=== PATIENT | male | born 1950 | race Caucasian/White ===

== ENCOUNTER → 2017-09-05 06:51 | Outpatient (CLI) | payer MEDICARE, OTHER, SELFPAY ==
[2017-09-05 08:34] LABS: Add Manual Diff / Slide Review NO; Basophils Percent Auto 0.7 % (0-2); Eosinophils Percent Auto 3.6 % (2-4); Hematocrit 43.5 % (41-53); Hemoglobin 14.9 g/dL (13.5-17.5); Lymphocytes Percent Auto 24.7 % (25-40); Mean Corpuscular HGB Conc 34.4 % (30-36); Mean Corpuscular Hemoglobin 32.9 PG (26-34); Mean Corpuscular Volume 95.6 fL (80-100); Monocytes Percent Auto 13.7 % (3-14); Neutrophils Absolute Auto 2300 /uL (3000-5900); Neutrophils Percent Auto 57.3 % (50-75); Platelet Count 78 X10^3/uL (150-400); Red Blood Cell Count 4.55 X10^6/uL (4.5-5.9); Red Cell Distribution Width 13.8 % (11.6-14.8); White Blood Cell Count 3.9 X10^3/uL (4.5-11.0)
[2017-09-05 08:38] LABS: INR 1.3 (0.9-1.3); Prothrombin Time 14.4 SECONDS (10.1-12.7)
[2017-09-05 08:53] LABS: Hemoglobin A1C% w Est Avg Glu 6.5 % (4.0-6.0)
[2017-09-05 09:16] LABS: Alanine Aminotransferase 23 IU/L (21-72); Albumin 3.9 g/dL (3.5-5.0); Albumin Globulin Ratio 1.1 (1.0-2.8); Alkaline Phosphatase 138 U/L (38-126); Aspartate Aminotransferase 27 IU/L (17-59); BUN Creatinine Ratio 11.4 (6-22); Bilirubin Total 0.8 mg/dL (0.2-1.3); Blood Urea Nitrogen 8 mg/dL (9-20); Calcium 9.2 mg/dL (8.4-10.2); Carbon Dioxide 28 mmol/L (22-32); Chloride 99 mmol/L (98-107); Estimated Glomerular Filt Rate > 60.0 mL/min (>60); Globulin 3.5 g/dL (1.7-4.1); Glucose 133 mg/dL (80-110); HEMOLYSIS < 15 (0-50); Potassium 4.6 mmol/L (3.4-5.1); Sodium 139 mmol/L (137-145); Total Protein 7.4 g/dL (6.3-8.2)
== END ==
PROVIDERS: PCP Internal Medicine; Visit Provider Internal Medicine
DX: I10 Essential (primary) hypertension (principal); K70.9 Alcoholic liver disease, unspecified; D69.6 Thrombocytopenia, unspecified; E11.9 Type 2 diabetes mellitus without complications
CPT/HCPCS: 36415; 80053; 83036; 85025; 85610

== ENCOUNTER → 2017-10-04 10:00 | Outpatient (CLI) | payer MEDICARE, OTHER, SELFPAY ==
[2017-10-06 15:22] LABS: Alpha Fetoprotein 6.5 ng/mL (< 6.1)
== END ==
PROVIDERS: Visit Provider Internal Medicine
DX: K74.60 Unspecified cirrhosis of liver (principal)
CPT/HCPCS: 36415; 82105

== ENCOUNTER → 2017-11-01 10:06 | Outpatient (CLI) | payer MEDICARE, OTHER, SELFPAY ==
--- NOTE | 2017-11-01 10:09 | DI.US.S_ITS ---
PROCEDURE: US ABDOMEN COMPLETE INDICATIONS: Cirrhosis of Liver TECHNIQUE: Real-time scanning was performed of the abdominal and retroperitoneal organs, with image documentation. COMPARISON: [facility], US, ABDOMEN COMPLETE, 03/28/2013, 8:53. [facility], US, ABDOMEN COMPLETE, 06/13/2013, 8:25. [facility], CT, ABDOMEN/PELVIS WITH CONTRAST, 08/09/2016, 12:47. [facility], CT, ABDOMEN/PELVIS WITH CONTRAST, 09/23/2015, 11:15. [facility], US, ABDOMEN COMPLETE, 12/03/2014, 12:12. FINDINGS: Liver: The liver demonstrates normal size. The liver demonstrates a coarse echotexture. There is a 1 x 1 x 1 cm hypoechoic solid nodule with vascularity seen involving the anterior right lobe of the liver. Gallbladder: Numerous gallstones are seen. The gallbladder wall is not thickened, measuring 3 mm or less. No specific pericholecystic fluid is seen. The sonographic Parr sign is negative. Biliary ducts: Intrahepatic bile ducts are non-dilated. Extrahepatic bile duct caliber measures 5 mm. Normal is 6-7 mm or less in diameter, or 10 mm or less post-cholecystectomy. Pancreas: Visualized portions of the pancreas are sonographically normal. Spleen: The spleen is mildly enlarged at 13.6 cm. Kidneys: Kidneys are normal in size and echotexture. Right kidney measures 12.1 cm long; left kidney measures 13 cm long. No hydronephrosis or nephrolithiasis. No solid masses. The renal cortex measures within normal limits for thickness. Aorta: Visualized aorta is normal in caliber at less than 3 cm. Iliacs: Proximal common iliac arteries are normal in caliber at less than 2.5 cm. IVC: Intrahepatic inferior vena cava is patent. Miscellaneous: No free abdominal fluid. IMPRESSION: Coarse liver echotexture is seen, which is consistent with the given history of cirrhosis. There is associated mild splenomegaly. There is a hypoechoic 1 cm nodule seen within right anterior liver. At clinical discretion, please consider a dedicated liver MRI (without and with contrast) for further evaluation (assuming that there is no contraindication). Gallstones are seen, without additional sonographic signs of cholecystitis. Dictated by: Hema Lamb M.D. on 11/01/2017 at 11:10 Approved by: Hema Lamb M.D. on 11/01/2017 at 11:13
== END ==
PROVIDERS: Family Provider Family Medicine; PCP Internal Medicine; Visit Provider Internal Medicine
DX: K74.60 Unspecified cirrhosis of liver (principal); R16.1 Splenomegaly, not elsewhere classified; K80.80 Other cholelithiasis without obstruction
CPT/HCPCS: 76700

== ENCOUNTER → 2017-11-29 09:28 | Outpatient (CLI) | payer MEDICARE, OTHER, SELFPAY ==
[2017-11-29 11:15] LABS: HEMOLYSIS < 15 (0-50); Iron 74 ug/dL (49-181)
[2017-11-29 11:16] LABS: Alanine Aminotransferase 20 IU/L (21-72); Albumin 4.1 g/dL (3.5-5.0); Albumin Globulin Ratio 1.1 (1.0-2.8); Alkaline Phosphatase 209 U/L (38-126); Aspartate Aminotransferase 31 IU/L (17-59); BUN Creatinine Ratio 14.3 (6-22); Bilirubin Total 0.7 mg/dL (0.2-1.3); Blood Urea Nitrogen 10 mg/dL (9-20); Calcium 9.4 mg/dL (8.4-10.2); Carbon Dioxide 27 mmol/L (22-32); Chloride 98 mmol/L (98-107); Estimated Glomerular Filt Rate > 60.0 mL/min (>60); Globulin 3.6 g/dL (1.7-4.1); Glucose 152 mg/dL (80-110); Potassium 5.1 mmol/L (3.4-5.1); Sodium 134 mmol/L (137-145); Total Protein 7.7 g/dL (6.3-8.2)
[2017-11-29 11:22] LABS: Hemoglobin A1C% w Est Avg Glu 6.8 % (4.0-6.0)
[2017-11-29 11:32] LABS: Percent Iron Saturation 25 % (20-50); Total Iron Binding Capacity 296 ug/dL (261-462); Transferrin 236 mg/dL (206-381)
[2017-11-29 11:45] LABS: HEMOLYSIS 66 (0-50)
[2017-11-29 11:48] LABS: Hepatitis B Surface Antigen NEGATIVE s/c (NEGATIVE)
[2017-11-29 12:10] LABS: Hep C Virus Ab w/Reflex Quant NEGATIVE s/c (NEGATIVE)
[2017-12-01 15:26] LABS: Hepatitis B Core Antibody Nonreactive (Nonreactive)
[2017-12-01 15:31] LABS: Hepatitis B Surf AB Imm QUANT < 5 mIU/mL (> 9)
== END ==
PROVIDERS: PCP Internal Medicine; Visit Provider Internal Medicine
DX: E11.9 Type 2 diabetes mellitus without complications (principal); K74.60 Unspecified cirrhosis of liver; K76.89 Other specified diseases of liver
CPT/HCPCS: 36415; 80053; 83036; 83540; 83550; 86317; 86704; 86803; 87340

== ENCOUNTER → 2017-12-05 10:59 | Outpatient (CLI) | payer MEDICARE, OTHER, SELFPAY ==
--- NOTE | 2017-12-05 11:00 | DI.MRI.S_ITS ---
PROCEDURE: MR ABDOMEN WO/W CON INDICATIONS: Further evaluation of liver lesion seen on ultrasound TECHNIQUE: Coronal HASTE, axial 2D FLASH in- and [id number]; axial breath-hold T2 FSE. Dynamic axial VIBE during the administration of contrast; post-contrast coronal VIBE or 2D FLASH with fat saturation from the hepatic dome to the iliac crests. Optional diffusion weighted imaging and ADC may be performed. COMPARISON: [facility], CT, ABDOMEN/PELVIS WITH CONTRAST, 09/23/2015, 11:15. [facility], CT, ABDOMEN/PELVIS WITH CONTRAST, 08/09/2016, 12:47. [facility], US, US ABDOMEN COMPLETE, 11/01/2017, 10:34. FINDINGS: Image quality: Diagnostic. Lung bases: No basal pleural effusions. Heart size is normal. There is a small hiatal hernia. Solid organs: There is a nodular hepatic contour compatible with cirrhosis. In the lateral right hepatic lobe, there is a region of mild capsular retraction with indistinct T1 hypointensity and T2 hyperintensity. This demonstrates slightly hypervascular enhancement with persistent hypervascularity on portal venous and delayed imaging. The findings are consistent with an area of confluent hepatic fibrosis. A small cyst is also demonstrated within segment 7 of the right hepatic lobe measuring approximately 0.5 cm. There is mild heterogeneous nodularity of the hepatic parenchyma compatible with cirrhosis and probable regenerative nodules. In addition, within segment 8 of the right hepatic lobe, there is a small ovoid focus of slight hypointensity on the delayed and poor venous phases measuring up to approximately 1 cm. This may represent a small subtle focus of washout corresponding to the finding on recent ultrasound. Elsewhere, no discrete hypervascular enhancing masses are identified but evaluation is slightly limited by the area of confluent hepatic fibrosis in the right hepatic lobe. Gallbladder appears within normal limits without gallstones. Biliary system is non dilated. Pancreas is normal in morphology. The spleen is mildly enlarged, measuring up to 14.5 cm. No adrenal nodules. The kidneys demonstrate no hydronephrosis. Nodes and vessels: No retroperitoneal or mesenteric adenopathy by size criteria. Aorta and inferior vena cava are normal in size. Bowel and peritoneum: Visualized bowel loops are normal in caliber. No free fluid. Bones and soft tissues: No ventral hernias. Bone marrow is normal in overall signal. IMPRESSION: 1. Nodular hepatic contour with heterogeneity of the hepatic parenchyma compatible with cirrhosis. 2. Geographic ill-defined region of confluent hepatic fibrosis demonstrated in the right hepatic lobe with associated capsular retraction. 3. Suspected small focus of washout in the right hepatic lobe which may correspond to the finding on recent ultrasound. No definite associated hypervascular lesion identified, but evaluation is limited by the adjacent area of confluent hepatic fibrosis. The findings are compatible with a LI-RADS 3 lesion and followup is recommended in 3-6 months. 4. Mild splenomegaly suggestive of portal hypertension. Dictated by: Case Tao M.D. on 12/05/2017 at 15:09 Approved by: Case Tao M.D. on 12/05/2017 at 15:26
== END ==
PROVIDERS: Family Provider Family Medicine; PCP Internal Medicine; Visit Provider Internal Medicine
DX: K76.89 Other specified diseases of liver (principal); K74.60 Unspecified cirrhosis of liver; R16.1 Splenomegaly, not elsewhere classified
CPT/HCPCS: 74183; A9579

== ENCOUNTER → 2018-01-23 09:49 | Outpatient (CLI) | payer MEDICARE, OTHER, SELFPAY ==
[2018-01-23 10:32] LABS: Add Manual Diff / Slide Review NO; Eosinophils Percent Auto 2.6 % (2-4); Hematocrit 45.8 % (41-53); Hemoglobin 15.9 g/dL (13.5-17.5); INR 1.3 (0.9-1.3); Lymphocytes Percent Auto 18.4 % (25-40); Mean Corpuscular HGB Conc 34.7 % (30-36); Mean Corpuscular Hemoglobin 32.6 PG (26-34); Monocytes Percent Auto 13.7 % (3-14); Neutrophils Absolute Auto 3600 /uL (3000-5900); Neutrophils Percent Auto 64.3 % (50-75); Platelet Count 88 X10^3/uL (150-400); Prothrombin Time 14.2 SECONDS (10.1-12.7); Red Blood Cell Count 4.87 X10^6/uL (4.5-5.9); Red Cell Distribution Width 13.6 % (11.6-14.8); White Blood Cell Count 5.6 X10^3/uL (4.5-11.0)
[2018-01-23 10:35] LABS: PTT Partial Thromboplastin Tim 32 SECONDS (26.4-36.2)
[2018-01-23 10:40] LABS: Alanine Aminotransferase 25 IU/L (21-72); Albumin 4.5 g/dL (3.5-5.0); Albumin Globulin Ratio 1.3 (1.0-2.8); Alkaline Phosphatase 226 U/L (38-126); Aspartate Aminotransferase 24 IU/L (17-59); BUN Creatinine Ratio 18.6 (6-22); Bilirubin Total 1.1 mg/dL (0.2-1.3); Blood Urea Nitrogen 13 mg/dL (9-20); Calcium 10.1 mg/dL (8.4-10.2); Carbon Dioxide 31 mmol/L (22-32); Chloride 97 mmol/L (98-107); Estimated Glomerular Filt Rate > 60.0 mL/min (>60); Globulin 3.5 g/dL (1.7-4.1); Glucose 228 mg/dL (80-110); HEMOLYSIS < 15 (0-50); Sodium 139 mmol/L (137-145)
== END ==
PROVIDERS: Visit Provider Specialist
DX: K74.60 Unspecified cirrhosis of liver (principal)
CPT/HCPCS: 36415; 80053; 85025; 85610; 85730

== ENCOUNTER → 2018-04-02 10:31 | Outpatient (CLI) | payer MEDICARE, OTHER, SELFPAY ==
[2018-04-02 11:28] LABS: Estimated Glomerular Filt Rate > 60.0 mL/min (>60)
== END ==
PROVIDERS: Family Provider Family Medicine; PCP Student in an Organized Health Care Education/Training Program; Visit Provider Family Medicine
DX: Z01.812 Encounter for preprocedural laboratory examination (principal)
CPT/HCPCS: 36415; 82565

== ENCOUNTER → 2018-04-04 09:41 | Outpatient (CLI) | payer MEDICARE, OTHER, SELFPAY ==
--- NOTE | 2018-04-04 09:42 | DI.MRI.S_ITS ---
PROCEDURE: MR ABDOMEN WO/W CON INDICATIONS: Liver nodule TECHNIQUE: Coronal HASTE, axial 2D FLASH in- and [id number]; axial breath-hold T2 FSE. Dynamic axial VIBE during the administration of contrast; post-contrast coronal VIBE or 2D FLASH with fat saturation from the hepatic dome to the iliac crests. Optional diffusion weighted imaging and ADC may be performed. COMPARISON: [facility], MR, MR ABDOMEN WO/W CON, 12/05/2017, 11:09. [facility], US, US ABDOMEN COMPLETE, 11/01/2017, 10:34. [facility], CT, ABDOMEN/PELVIS WITH CONTRAST, 08/09/2016, 12:47. FINDINGS: Image quality: This examination is limited by involuntary motion artifact. A portion of the superior liver is off of the [id number]-[id number] of a few of the images. Lung bases: No basal pleural effusions. Heart size is normal. Solid organs: Liver demonstrates normal size. There is a minimally nodular contour seen in the liver. Within the lateral aspect of the right liver anteriorly, there is capsular retraction seen, with an area of minimally hypervascular enhancement with continued mildly Increased enhancement on delayed imaging, which is consistent with stable confluent fibrosis. Within the superior aspect of segment 7 of the liver, there is a subcentimeter nonenhancing simple cyst, as on series 24 image 2 and on series 4 image 21 and on series 5 image 7. On the prior report, there is mention of a segment 8 lesion. On the current study, there is an 8mm focus of poor enhancement seen, as on series 18 image 12. Gallbladder demonstrates no significant MRI abnormality. Biliary system is non dilated. Pancreas is normal in morphology. Spleen is mildly enlarged, measuring 13.4 cm in greatest craniocaudal dimension. No focal splenic lesions can be seen. No adrenal nodules. Both kidneys demonstrate normal size and enhancement, without hydronephrosis. Subcentimeter right renal cysts are incidentally noted. Nodes and vessels: No retroperitoneal or mesenteric adenopathy by size criteria. Aorta and inferior vena cava are normal in size. Bowel and peritoneum: Unenhanced bowel loops are normal in caliber. No free fluid. Bones and soft tissues: No ventral hernias. Bone marrow is normal in overall signal. Age-appropriate bony degenerative changes are seen. There is a fat-containing ventral hernia seen to the right of the midline, as on series 5 image 27 and on series 18 image 58. IMPRESSION: No suspicious liver lesions are seen. There is an area of confluent fibrosis involving the right lobe of the liver, as before. There is an area of poor enhancement seen along the region of confluent fibrosis, which is considered to be a LI-RADS 3 lesion. Please consider a followup liver protocol MRI in one year for further evaluation. Mildly cirrhotic morphology of the liver. There is mild splenomegaly. Incidental note is made of: Fat-containing ventral hernia Liver and renal cysts. Dictated by: Hema Lamb M.D. on 04/04/2018 at 12:50 Approved by: Hema Lamb M.D. on 04/04/2018 at 13:05
== END ==
PROVIDERS: PCP Student in an Organized Health Care Education/Training Program; Visit Provider Internal Medicine
DX: K76.9 Liver disease, unspecified (principal); K74.0 Hepatic fibrosis; K74.60 Unspecified cirrhosis of liver; R16.1 Splenomegaly, not elsewhere classified
CPT/HCPCS: 74183; A9579

== ENCOUNTER → 2018-05-06 07:47 | Outpatient (CLI) | payer MEDICARE, OTHER, SELFPAY ==
[2018-05-06 08:54] LABS: Hematocrit 46.2 % (41-53); Mean Corpuscular HGB Conc 34.7 % (30-36); Mean Corpuscular Hemoglobin 31.7 PG (26-34); Mean Corpuscular Volume 91.5 fL (80-100); Platelet Count 93 X10^3/uL (150-400); Red Blood Cell Count 5.05 X10^6/uL (4.5-5.9); Red Cell Distribution Width 13.4 % (11.6-14.8); White Blood Cell Count 4.5 X10^3/uL (4.5-11.0)
[2018-05-06 09:00] LABS: Hemoglobin A1C% w Est Avg Glu 10.3 % (4.0-6.0)
[2018-05-06 09:03] LABS: INR 1.2 (0.9-1.3); Prothrombin Time 14.2 SECONDS (10.1-12.7)
[2018-05-06 09:15] LABS: Alanine Aminotransferase 29 IU/L (21-72); Albumin 4.3 g/dL (3.5-5.0); Albumin Globulin Ratio 1.3 (1.0-2.8); Alkaline Phosphatase 156 U/L (38-126); Aspartate Aminotransferase 26 IU/L (17-59); Bilirubin Total 1.4 mg/dL (0.2-1.3); Blood Urea Nitrogen 8 mg/dL (9-20); Calcium 9.5 mg/dL (8.4-10.2); Carbon Dioxide 26 mmol/L (22-32); Chloride 97 mmol/L (98-107); Cholesterol 200 mg/dL (140-199); Estimated Glomerular Filt Rate > 60.0 mL/min (>60); Globulin 3.4 g/dL (1.7-4.1); Glucose 244 mg/dL (80-110); HDL Cholesterol 42 mg/dL (40-60); HEMOLYSIS < 15 (0-50); LDL Cholesterol Calculated 117 mg/dL (<100); Potassium 4.6 mmol/L (3.4-5.1); Sodium 134 mmol/L (137-145); Total Protein 7.7 g/dL (6.3-8.2); Triglycerides 204 mg/dL (35-150)
[2018-05-06 09:27] LABS: Vitamin D 25 Hydroxy (D3) 28.2 ng/mL (30.0-100.0)
[2018-05-06 09:40] LABS: Prostate Specific Antigen Scrn 5.23 ng/mL (0.1-4.0)
[2018-05-06 10:28] LABS: Microalbumin Urine Random 10.1 mg/dL (0-1.6)
[2018-05-06 11:09] LABS: Creatinine Urine Random 368.7 mg/dL; Microalbumi Creatinin Ratio Ur 27.3 ug/mg CR (<30)
[2018-05-07 14:30] LABS: Alpha Fetoprotein 5.5 ng/mL (< 6.1)
== END ==
PROVIDERS: PCP Student in an Organized Health Care Education/Training Program; Visit Provider Student in an Organized Health Care Education/Training Program
DX: E55.9 Vitamin D deficiency, unspecified (principal); E11.9 Type 2 diabetes mellitus without complications; I10 Essential (primary) hypertension; K74.60 Unspecified cirrhosis of liver; Z13.220 Encounter for screening for lipoid disorders; Z12.5 Encounter for screening for malignant neoplasm of prostate
CPT/HCPCS: 36415; 80053; 80061; 82043; 82105; 82306; 82570; 83036; 85027; 85610; G0103

== ENCOUNTER → 2018-06-18 13:09 | Outpatient (CLI) | payer MEDICARE, OTHER, SELFPAY ==
[2018-06-18 14:13] LABS: Platelet Count 77 X10^3/uL (150-400)
[2018-06-18 14:36] LABS: Alanine Aminotransferase 29 IU/L (21-72); Albumin 4.3 g/dL (3.5-5.0); Albumin Globulin Ratio 1.4 (1.0-2.8); Alkaline Phosphatase 138 U/L (38-126); Aspartate Aminotransferase 34 IU/L (17-59); Bilirubin Direct 0.2 mg/dL (0.0-0.4); Bilirubin Total 1.1 mg/dL (0.2-1.3); Bilirubin Unconjugated 0.8 mg/dL (0.0-1.1); Gamma Glutamyl Transpeptidase 44 U/L (15-73); Globulin 3.1 g/dL (1.7-4.1); HEMOLYSIS < 15 (0-50); Total Protein 7.4 g/dL (6.3-8.2)
[2018-06-18 15:07] LABS: Prostate Specific Antigen 4.59 ng/mL (0.10-4.00)
== END ==
PROVIDERS: PCP Student in an Organized Health Care Education/Training Program; Visit Provider Student in an Organized Health Care Education/Training Program
DX: K74.60 Unspecified cirrhosis of liver (principal); K76.89 Other specified diseases of liver; R97.20 Elevated prostate specific antigen [PSA]
CPT/HCPCS: 36415; 80076; 82248; 82977; 84153; 85049

== ENCOUNTER → 2018-10-07 11:39 | Outpatient (CLI) | payer MEDICARE, OTHER, SELFPAY ==
[2018-10-07 13:39] LABS: Prostate Specific Antigen 5.88 ng/mL (0.10-4.00)
== END ==
PROVIDERS: PCP Student in an Organized Health Care Education/Training Program; Visit Provider Specialist
DX: N40.1 Benign prostatic hyperplasia with lower urinary tract symptoms (principal)
CPT/HCPCS: 36415; 84153

== ENCOUNTER → 2018-11-23 09:10 | Outpatient (CLI) | payer MEDICARE, OTHER, SELFPAY ==
[2018-11-23 10:54] LABS: Alanine Aminotransferase 12 IU/L (21-72); Albumin Globulin Ratio 1.2 (1.0-2.8); Alkaline Phosphatase 181 U/L (38-126); Aspartate Aminotransferase 23 IU/L (17-59); Bilirubin Total 1.2 mg/dL (0.2-1.3); Cholesterol 142 mg/dL (140-199); Globulin 3.3 g/dL (1.7-4.1); HDL Cholesterol 48 mg/dL (40-60); HEMOLYSIS < 15 (0-50); LDL Cholesterol Calculated 69 mg/dL (<100); Total Protein 7.3 g/dL (6.3-8.2); Triglycerides 125 mg/dL (35-150)
== END ==
PROVIDERS: PCP Student in an Organized Health Care Education/Training Program; Visit Provider Student in an Organized Health Care Education/Training Program
DX: E78.5 Hyperlipidemia, unspecified (principal); Z79.899 Other long term (current) drug therapy
CPT/HCPCS: 36415; 80061; 80076

== ENCOUNTER → 2019-04-08 09:35 | Outpatient (CLI) | payer MEDICARE, OTHER, SELFPAY ==
[2019-04-08 10:14] LABS: Hematocrit 44.9 % (41-53); Hemoglobin 15.5 g/dL (13.5-17.5); Mean Corpuscular HGB Conc 34.4 % (30-36); Mean Corpuscular Hemoglobin 31.7 PG (26-34); Mean Corpuscular Volume 91.9 fL (80-100); Platelet Count 93 X10^3/uL (150-400); Red Blood Cell Count 4.88 X10^6/uL (4.5-5.9); Red Cell Distribution Width 13.4 % (11.6-14.8); White Blood Cell Count 4.9 X10^3/uL (4.5-11.0)
[2019-04-08 10:21] LABS: Hemoglobin A1C% w Est Avg Glu 10.7 % (4.0-6.0)
[2019-04-08 10:44] LABS: Alanine Aminotransferase 17 IU/L (<50); Albumin 4.5 g/dL (3.5-5.0); Albumin Globulin Ratio 1.4 (1.0-2.8); Alkaline Phosphatase 139 U/L (38-126); Aspartate Aminotransferase 24 IU/L (17-59); BUN Creatinine Ratio 12.5 (6-22); Bilirubin Total 1.5 mg/dL (0.2-1.3); Blood Urea Nitrogen 10 mg/dL (9-20); Calcium 9.9 mg/dL (8.4-10.2); Carbon Dioxide 31 mmol/L (22-32); Chloride 98 mmol/L (98-107); Estimated Glomerular Filt Rate > 60.0 mL/min (>60); Globulin 3.3 g/dL (1.7-4.1); Glucose 221 mg/dL (80-110); HEMOLYSIS < 15 (0-50); Sodium 137 mmol/L (137-145); Total Protein 7.8 g/dL (6.3-8.2)
[2019-04-08 10:51] LABS: Potassium 5.4 mmol/L (3.4-5.1)
[2019-04-08 11:03] LABS: Creatinine Urine Random 16.7 mg/dL
[2019-04-08 11:12] LABS: Microalbumi Creatinin Ratio Ur 35.9 ug/mg CR (<30); Microalbumin Urine Random < 0.6 mg/dL (0-1.6)
[2019-04-08 11:14] LABS: Prostate Specific Antigen 5.05 ng/mL (0.10-4.00)
== END ==
PROVIDERS: PCP Student in an Organized Health Care Education/Training Program; Visit Provider Student in an Organized Health Care Education/Training Program
DX: E11.9 Type 2 diabetes mellitus without complications (principal); F10.20 Alcohol dependence, uncomplicated; I10 Essential (primary) hypertension; K74.60 Unspecified cirrhosis of liver; D69.6 Thrombocytopenia, unspecified; R97.20 Elevated prostate specific antigen [PSA]
CPT/HCPCS: 36415; 80053; 82043; 82570; 83036; 84153; 85027

== ENCOUNTER → 2019-08-05 10:22 | Outpatient (CLI) | payer MEDICARE, OTHER, SELFPAY ==
[2019-08-05 12:04] LABS: Hemoglobin A1C% w Est Avg Glu 6.9 % (4.0-6.0)
[2019-08-05 12:11] LABS: Alanine Aminotransferase 18 IU/L (<50); Albumin 4.4 g/dL (3.5-5.0); Albumin Globulin Ratio 1.2 (1.0-2.8); Alkaline Phosphatase 118 U/L (38-126); Aspartate Aminotransferase 30 IU/L (17-59); Bilirubin Total 0.6 mg/dL (0.2-1.3); Blood Urea Nitrogen 10 mg/dL (9-20); Calcium 9.9 mg/dL (8.4-10.2); Carbon Dioxide 27 mmol/L (22-32); Chloride 100 mmol/L (98-107); Estimated Glomerular Filt Rate > 60.0 mL/min (>60); Globulin 3.6 g/dL (1.7-4.1); Glucose 116 mg/dL (80-110); HEMOLYSIS < 15 (0-50); Sodium 136 mmol/L (137-145)
[2019-08-05 12:16] LABS: Potassium 5.4 mmol/L (3.4-5.1)
[2019-08-05 12:46] LABS: Prostate Specific Antigen 4.76 ng/mL (0.10-4.00)
== END ==
PROVIDERS: PCP Student in an Organized Health Care Education/Training Program; Referring Provider Specialist; Visit Provider Specialist
DX: N40.1 Benign prostatic hyperplasia with lower urinary tract symptoms (principal); E11.9 Type 2 diabetes mellitus without complications; K74.60 Unspecified cirrhosis of liver; Z79.899 Other long term (current) drug therapy
CPT/HCPCS: 36415; 80053; 83036; 84153

== ENCOUNTER → 2020-02-25 12:18 | Outpatient (CLI) | payer MEDICARE, OTHER, SELFPAY ==
[2020-02-25 12:46] LABS: Add Manual Diff / Slide Review NO; Basophils Absolute Auto 100 /uL (0-100); Basophils Percent Auto 0.8 % (0-2); Eosinophils Absolute Auto 200 /uL (0-450); Eosinophils Percent Auto 2.6 % (2-4); Hematocrit 44.5 % (41-53); Hemoglobin 14.9 g/dL (13.5-17.5); Lymphocytes Absolute Auto 1300 /uL (1100-4500); Lymphocytes Percent Auto 18.6 % (25-40); Mean Corpuscular HGB Conc 33.6 % (30-36); Mean Corpuscular Hemoglobin 31.1 PG (26-34); Mean Corpuscular Volume 92.6 fL (80-100); Monocytes Absolute Auto 800 /uL (0-900); Monocytes Percent Auto 10.8 % (3-14); Neutrophils Absolute Auto 4700 /uL (1500-7000); Neutrophils Percent Auto 67.2 % (50-75); Platelet Count 103 X10^3/uL (150-400); Red Cell Distribution Width 13.7 % (11.6-14.8)
[2020-02-25 13:02] LABS: Hemoglobin A1C% w Est Avg Glu 7.2 % (4.0-6.0)
[2020-02-25 13:48] LABS: Alanine Aminotransferase 18 IU/L (<50); Albumin 4.4 g/dL (3.5-5.0); Albumin Globulin Ratio 1.3 (1.0-2.8); Alkaline Phosphatase 105 U/L (38-126); Aspartate Aminotransferase 24 IU/L (17-59); BUN Creatinine Ratio 13.8 (6-22); Bilirubin Total 1.2 mg/dL (0.2-1.3); Blood Urea Nitrogen 11 mg/dL (9-20); Calcium 9.8 mg/dL (8.4-10.2); Carbon Dioxide 30 mmol/L (22-32); Chloride 99 mmol/L (98-107); Estimated Glomerular Filt Rate > 60.0 mL/min (>60); Globulin 3.4 g/dL (1.7-4.1); Glucose 121 mg/dL (80-110); HEMOLYSIS < 15 (0-50); Potassium 5.1 mmol/L (3.4-5.1); Sodium 133 mmol/L (137-145); Total Protein 7.8 g/dL (6.3-8.2)
[2020-02-25 16:26] LABS: Creatinine Urine Random 48.7 mg/dL
[2020-02-25 16:30] LABS: Microalbumi Creatinin Ratio Ur 22.5 ug/mg CR (<30); Microalbumin Urine Random 1.1 mg/dL (0-1.6)
[2020-02-25 16:42] LABS: Vitamin D 25 Hydroxy (D3) 48.4 ng/mL (30.0-100.0)
== END ==
PROVIDERS: PCP Student in an Organized Health Care Education/Training Program; Referring Provider Specialist; Visit Provider Specialist
DX: E11.9 Type 2 diabetes mellitus without complications (principal); E55.9 Vitamin D deficiency, unspecified; F10.20 Alcohol dependence, uncomplicated; E78.5 Hyperlipidemia, unspecified; K74.60 Unspecified cirrhosis of liver; K76.6 Portal hypertension; D50.9 Iron deficiency anemia, unspecified; K76.89 Other specified diseases of liver
CPT/HCPCS: 36415; 80053; 82043; 82306; 82570; 83036; 85025

== ENCOUNTER → 2020-03-05 13:01 | Outpatient (CLI) | payer MEDICARE, OTHER, SELFPAY ==
--- NOTE | 2020-03-05 14:08 | DI.MRI.S_ITS ---
PROCEDURE: MR ABDOMEN WO/W CON INDICATIONS: F/u abnormal liver imaging 2018 TECHNIQUE: Coronal HASTE, axial 2D FLASH in- and [id number]; axial breath-hold T2 FSE. Dynamic axial VIBE during the administration of contrast; post-contrast coronal VIBE or 2D FLASH with fat saturation from the hepatic dome to the iliac crests. Optional diffusion weighted imaging and ADC may be performed. COMPARISON: [facility], CT, ABDOMEN/PELVIS WITH CONTRAST, 08/09/2016, 12:47. [facility], MR, MR ABDOMEN WO/W CON, 12/05/2017, 11:09. [facility], MR, MR ABDOMEN WO/W CON, 04/04/2018, 9:46. FINDINGS: Image quality: Excellent. Lung bases: No basal pleural effusions. Heart size is normal. Gynecomastia. Solid organs: Nodular and somewhat shrunken appearance of the liver. Hypertrophy of the caudate lobe. Findings in keeping with cirrhosis. There is no significant steatosis appreciated. Mild fibrosis in the lateral right lobe of the liver with geographic delayed heterogeneous enhancement. Overall similar to the prior exams. There is subcapsular retraction at this site. No hyperenhancing lesion or washout. No restricted diffusion. No suspicious T2 hyperintense lesions. A few small benign cysts. Gallbladder is not distended. No gallstones seen. Biliary system is non dilated. Pancreas is normal in morphology. Spleen is at the upper limits of normal in size measuring at 12.9 cm. No adrenal nodules. Both kidneys demonstrate normal size and enhancement, without hydronephrosis. Nodes and vessels: No retroperitoneal or mesenteric adenopathy by size criteria. Small pericardiac lymph node is unchanged compared to 2017. Aorta and inferior vena cava are normal in size. Small paraesophageal low and upper abdominal varices. Conventional and patent hepatic arterial anatomy. The portal vein is patent. Bowel and peritoneum: Unenhanced bowel loops are normal in caliber. No ascites. Bones and soft tissues: Similar containing ventral abdominal wall hernias. Bone marrow is normal in overall signal. IMPRESSION: 1. Cirrhotic liver morphology. No LR 4 or 5 lesions to suggest HCC. 2. Upper abdominal varices and prominent spleen. Findings suggesting portal hypertension. No ascites. 3. Area of fibrosis and subcapsular retraction in the right hepatic lobe is similar in appearance. Dictated by: Gurwinder Alvarez M.D. on 03/05/2020 at 14:33 Approved by: Gurwinder Alvarez M.D. on 03/05/2020 at 14:51
== END ==
PROVIDERS: PCP Student in an Organized Health Care Education/Training Program; Referring Provider Student in an Organized Health Care Education/Training Program; Visit Provider Student in an Organized Health Care Education/Training Program
DX: K76.89 Other specified diseases of liver (principal); K74.60 Unspecified cirrhosis of liver; K76.6 Portal hypertension
CPT/HCPCS: 74183; A9579

== ENCOUNTER → 2020-03-29 11:09 | Outpatient (CLI) | payer MEDICARE, OTHER, SELFPAY ==
[2020-03-29 13:01] LABS: COVID19 -Nasal RAPID Negative (Negative)
== END ==
PROVIDERS: PCP Student in an Organized Health Care Education/Training Program; Visit Provider Surgery
DX: Z20.822 Contact with and (suspected) exposure to COVID-19 (principal)
CPT/HCPCS: 87635; C9803

== ENCOUNTER → 2020-04-15 10:37 | Outpatient (CLI) | payer MEDICARE, OTHER, SELFPAY ==
[2020-04-15 14:12] LABS: Prostate Specific Antigen 5.75 ng/mL (0.10-4.00)
== END ==
PROVIDERS: PCP Student in an Organized Health Care Education/Training Program; Referring Provider Specialist; Visit Provider Specialist
DX: N40.0 Benign prostatic hyperplasia without lower urinary tract symptoms (principal)
CPT/HCPCS: 36415; 84153

== ENCOUNTER → 2020-05-14 10:05 | Outpatient (CLI) | payer MEDICARE, OTHER, SELFPAY ==
[2020-05-14 11:36] LABS: COVID19 -Nasal RAPID Negative (Negative)
== END ==
PROVIDERS: PCP Student in an Organized Health Care Education/Training Program; Visit Provider Surgery
DX: Z20.822 Contact with and (suspected) exposure to COVID-19 (principal)
CPT/HCPCS: 87635; C9803

== ENCOUNTER 2020-05-17 07:59 | Day surgery (SDC) | payer MEDICARE, OTHER, SELFPAY ==
[2020-05-17] MEDS: LACTATED RINGERS 1,000 ML 42 ML IV (08:24)
[2020-05-17 08:25] VITALS: BP 135/91; PULSE 87; RESP 13; TEMP 36.8; O2SAT 96; BMI 25.8
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
[2020-05-17 08:43] VITALS: BMI 25.8
--- NOTE | 2020-05-17 09:17 | PM.OP.ENDO ---
Operative Date/Time/Diagnoses Date of procedure: 05/17/20 Time of procedure: 09:17 Pre-op diagnosis: Personal history of colon polyps, cirrhosis Post-op diagnosis: same (Normal colon on today's exam) Procedure & Clinicians Study performed: Colonoscopy Same procedure as scheduled: Yes Indications: Personal history of colon polyps, cirrhosis. Due the patient's medical complexity, and anticipated difficulty with sedation due to his alcohol and cirrhosis history have consulted the anesthesiologist to provide sedation during this procedure. Surgeon: Emily Mendez Procedure Notes SCOAP/Timeout: Performed Procedure in detail: The patient was brought to the room and placed in left lateral decubitus position with all bony prominences padded. A time-out was performed and then the patient was sedated by the anesthesiologist. Once adequately sedated, the procedure was begun. A rectal exam was performed revealing no abnormalities. The colonoscope was then introduced to the rectum and advanced to the cecum in the usual fashion. His sigmoid anastomosis from his prior sigmoid colectomy was noted. It was widely patent, without any anastomotic narrowing. The cecum was identified by the appendiceal orifice, the mucosal tri-fold, and the ileocecal valve. The scope was then retracted while rotating side to side and examining each mucosal fold. No polyps were found. The patient had extensive diverticulosis just above and below his anastomosis in the sigmoid colon, and moderate diverticulosis throughout his ascending, transverse, and descending colon. At the conclusion of the procedure retroflexion was performed and small grade 1-2 internal hemorrhoids without stigmata of bleeding were seen. The scope was then withdrawn from the rectum the procedure was concluded. The patient tolerated the procedure well and was transferred to the PACU in stable condition. Scope withdrawal time: 6 Findings: diverticulosis Specimen(s): none sent Complications: none Impression: Moderate diverticulosis, no polyps Post-procedure Recommendations: Colonscopy in 10 years Plan for aftercare: High-fiber diet/fiber supplement Follow up: as needed Disposition: PACU
[2020-05-17 09:22] VITALS: BP 108/73; PULSE 89; RESP 17; TEMP 36.4; O2SAT 98
[2020-05-17 09:37] VITALS: BP 128/93; PULSE 86; RESP 17; TEMP 36.5; O2SAT 98
== END 2020-05-17 09:52 | disposition home or self-care (01) ==
PROVIDERS: PCP Student in an Organized Health Care Education/Training Program; Referring Provider Surgery; Visit Provider Surgery
PROC: 0DJD8ZZ Inspection of Lower Intestinal Tract, Via Natural or Artificial Opening Endoscopic (ICD-10-PCS; CPT 45378; principal; 2020-05-17 09:15)
DX: Z12.11 Encounter for screening for malignant neoplasm of colon (principal); Z86.010 Personal history of colon polyps; E11.69 Type 2 diabetes mellitus with other specified complication; E78.5 Hyperlipidemia, unspecified; K70.30 Alcoholic cirrhosis of liver without ascites; F10.11 Alcohol abuse, in remission; E11.9 Type 2 diabetes mellitus without complications; I50.9 Heart failure, unspecified; Z79.84 Long term (current) use of oral hypoglycemic drugs; K57.30 Diverticulosis of large intestine without perforation or abscess without bleeding; K64.0 First degree hemorrhoids
CPT/HCPCS: G0105; J2704

== ENCOUNTER → 2020-10-16 08:18 | Outpatient (CLI) | payer MEDICARE, OTHER, SELFPAY ==
[2020-10-16 10:04] LABS: Hemoglobin A1C% w Est Avg Glu 6.7 % (4.0-6.0)
[2020-10-16 10:14] LABS: BUN Creatinine Ratio 16.9 (6-22); Blood Urea Nitrogen 12 mg/dL (9-20); Calcium 9.6 mg/dL (8.4-10.2); Carbon Dioxide 26 mmol/L (22-32); Chloride 105 mmol/L (98-107); Estimated Glomerular Filt Rate > 60.0 mL/min (>60); Glucose 134 mg/dL (80-110); HEMOLYSIS < 15 (0-50); Potassium 4.5 mmol/L (3.4-5.1); Sodium 136 mmol/L (137-145)
[2020-10-16 10:35] LABS: Prostate Specific Antigen 6.61 ng/mL (0.10-4.00)
== END ==
PROVIDERS: Specialist; PCP Student in an Organized Health Care Education/Training Program; Referring Provider Student in an Organized Health Care Education/Training Program; Visit Provider Student in an Organized Health Care Education/Training Program
DX: E11.9 Type 2 diabetes mellitus without complications (principal); N40.0 Benign prostatic hyperplasia without lower urinary tract symptoms; F10.21 Alcohol dependence, in remission
CPT/HCPCS: 36415; 80048; 83036; 84153

== ENCOUNTER → 2021-01-19 09:40 | Outpatient (CLI) | payer MEDICARE, OTHER, SELFPAY ==
[2021-01-19 11:39] LABS: Prostate Specific Antigen 6.64 ng/mL (0.10-4.00)
== END ==
PROVIDERS: PCP Student in an Organized Health Care Education/Training Program; Referring Provider Specialist; Visit Provider Specialist
DX: N13.8 Other obstructive and reflux uropathy (principal); R97.20 Elevated prostate specific antigen [PSA]; N40.1 Benign prostatic hyperplasia with lower urinary tract symptoms
CPT/HCPCS: 36415; 84153

== ENCOUNTER → 2021-02-23 08:31 | Outpatient (CLI) | payer MEDICARE, OTHER, SELFPAY ==
[2021-02-23 19:58] LABS: Microalbumin Urine Random 1.4 mg/dL (0-1.6)
[2021-02-23 20:01] LABS: Creatinine Urine Random 47.1 mg/dL; Microalbumi Creatinin Ratio Ur 29.7 ug/mg CR (<30)
== END ==
PROVIDERS: PCP Student in an Organized Health Care Education/Training Program; Referring Provider Student in an Organized Health Care Education/Training Program; Visit Provider Student in an Organized Health Care Education/Training Program
DX: E11.69 Type 2 diabetes mellitus with other specified complication (principal); E78.5 Hyperlipidemia, unspecified; R97.20 Elevated prostate specific antigen [PSA]; N40.1 Benign prostatic hyperplasia with lower urinary tract symptoms; N13.8 Other obstructive and reflux uropathy
CPT/HCPCS: 36415; 80061; 82043; 82570; 83036; 99214

== ENCOUNTER → 2021-06-17 14:26 | Outpatient (CLI) | payer MEDICARE, OTHER, SELFPAY ==
[2021-06-17 16:29] LABS: Prostate Specific Antigen 7.77 ng/mL (0.10-4.00)
== END ==
PROVIDERS: PCP Student in an Organized Health Care Education/Training Program; Referring Provider Specialist; Visit Provider Specialist
DX: R97.20 Elevated prostate specific antigen [PSA] (principal)
CPT/HCPCS: 36415; 84153

== ENCOUNTER → 2021-08-31 08:58 | Outpatient (CLI) | payer MEDICARE, OTHER, SELFPAY ==
[2021-08-31 11:31] LABS: Hemoglobin A1C% w Est Avg Glu 6.5 % (4.0-6.0)
== END ==
PROVIDERS: PCP Student in an Organized Health Care Education/Training Program; Referring Provider Student in an Organized Health Care Education/Training Program; Visit Provider Student in an Organized Health Care Education/Training Program
DX: E11.9 Type 2 diabetes mellitus without complications (principal)
CPT/HCPCS: 36415; 83036

== ENCOUNTER → 2022-03-30 09:29 | Outpatient (CLI) | payer MEDICARE, OTHER, SELFPAY ==
[2022-03-30 10:15] LABS: Hemoglobin A1C% w Est Avg Glu 6.6 % (4.0-6.0)
[2022-03-30 10:25] LABS: Alanine Aminotransferase 21 IU/L (<50); Albumin Globulin Ratio 1.4 (1.0-2.8); Alkaline Phosphatase 92 U/L (38-126); Aspartate Aminotransferase 24 IU/L (17-59); BUN Creatinine Ratio 17.1 (6-22); Blood Urea Nitrogen 12 mg/dL (9-20); Calcium 9.2 mg/dL (8.4-10.2); Carbon Dioxide 33 mmol/L (22-32); Chloride 96 mmol/L (98-107); Cholesterol 135 mg/dL (140-199); Estimated Glomerular Filt Rate > 60 mL/min (>60); Globulin 2.9 g/dL (1.7-4.1); Glucose 131 mg/dL (80-110); HDL Cholesterol 49 mg/dL (40-60); HEMOLYSIS < 15 (0-50); LDL Cholesterol Calculated 68 mg/dL (<100); Potassium 4.9 mmol/L (3.4-5.1); Sodium 135 mmol/L (137-145); Total Protein 6.9 g/dL (6.3-8.2); Triglycerides 92 mg/dL (35-150)
[2022-03-30 10:54] LABS: Prostate Specific Antigen 5.84 ng/mL (0.10-4.00)
[2022-03-30 11:40] LABS: Creatinine Urine Random 61.6 mg/dL
[2022-03-30 11:44] LABS: Microalbumi Creatinin Ratio Ur 21.1 ug/mg CR (<30); Microalbumin Urine Random 1.3 mg/dL (0-1.6)
[2022-03-30 11:50] LABS: Vitamin B12 475 pg/mL (239-931)
== END ==
PROVIDERS: PCP Student in an Organized Health Care Education/Training Program; Referring Provider Student in an Organized Health Care Education/Training Program; Visit Provider Student in an Organized Health Care Education/Training Program
DX: E11.9 Type 2 diabetes mellitus without complications (principal); R97.20 Elevated prostate specific antigen [PSA]; K70.30 Alcoholic cirrhosis of liver without ascites; K76.6 Portal hypertension; T50.905A Adverse effect of unspecified drugs, medicaments and biological substances, initial encounter; E11.69 Type 2 diabetes mellitus with other specified complication; E78.5 Hyperlipidemia, unspecified
CPT/HCPCS: 36415; 80053; 80061; 82043; 82570; 82607; 83036; 84153

== ENCOUNTER → 2022-07-11 07:14 | Outpatient (CLI) | payer MEDICARE, OTHER, SELFPAY ==
[2022-07-11 09:35] LABS: Prostate Specific Antigen 5.47 ng/mL (0.10-4.00)
== END ==
PROVIDERS: PCP Student in an Organized Health Care Education/Training Program; Referring Provider Specialist; Visit Provider Specialist
DX: R97.20 Elevated prostate specific antigen [PSA] (principal)
CPT/HCPCS: 36415; 84153

== ENCOUNTER → 2022-09-28 14:04 | Outpatient (CLI) | payer MEDICARE, OTHER, SELFPAY ==
[2022-09-29 04:30] LABS: Labcorp Hemoglobin (Hb) A1c 6.2 % (4.8-5.6)
== END ==
PROVIDERS: PCP Student in an Organized Health Care Education/Training Program; Referring Provider Student in an Organized Health Care Education/Training Program; Visit Provider Student in an Organized Health Care Education/Training Program
DX: E11.9 Type 2 diabetes mellitus without complications (principal)
CPT/HCPCS: 36415; 83036

== ENCOUNTER → 2023-08-15 08:28 | Outpatient (CLI) | payer OTHER, SELFPAY ==
--- NOTE | 2023-08-15 08:30 | DI.MRI.S_ITS ---
PROCEDURE: MR PELVIC PROSTATE PROTOCOL INDICATIONS: Benign prostatic hyperplasia with urinary obstruction. PSA 5.47 TECHNIQUE: Coronal HASTE, axial T1 FSE with fat saturation, 3-plane nonbreath-hold T2 FSE. After the administration of contrast, dynamic axial, delayed axial and coronal VIBE or 2-D FLASH with fat saturation through the pelvis. Diffusion weighted imaging and ADC was performed. COMPARISON: [facility], CT, ABDOMEN/PELVIS WITH CONTRAST, 08/09/2016, 12:47. [facility], MR, MR ABDOMEN WO/W CON, 03/05/2020, 13:06. FINDINGS: Image quality: Diffusion weighted and dynamic contrast enhanced images are diagnostic. Prostate: Gland size is 6.3 x 5.9 x 5.8 cm; ellipsoid gland volume is 112 mL. No significant foci of intrinsic T1 hyperintensity to suggest hemorrhage. Multiple BPH nodules. Lesion 1: Location: Right base transitional zone, on axial series 4, image 8 and sagittal series 6, image 9. Size: 1.1 x 0.8 cm. T2W signal: Hypointense. DWI signal: Mildly hyperintense. ADC signal: Mildly hypointense. Enhancement: Yes. Extracapsular extension: No. No neurovascular involvement. PI-RADS score: 3 Genitourinary system: Bladder wall thickness is normal. Distal ureters are non distended. Bowel and peritoneum: No pathologic free pelvic fluid. Inferior colon and small bowel loops are normal in caliber. Nodes and vessels: No pelvic or inguinal adenopathy by size criteria. Iliac vessels are normal in caliber. Soft tissues: No inguinal hernias. Mild enhancement at the left greater trochanter tendinous insertion. Bones: Diffuse heterogeneous appearance of the bones. IMPRESSION: 1. Marked prostatomegaly. 2. Right base transitional zone observation measuring 1.1 cm. PI-RADS 3. 3. No enlarged lymph nodes. Dictated by: Gurwinder Alvarez M.D. on 08/15/2023 at 15:49 Approved by: Gurwinder Alvarez M.D. on 08/15/2023 at 16:38
== END ==
PROVIDERS: Referring Provider Specialist; Visit Provider Specialist
DX: N40.1 Benign prostatic hyperplasia with lower urinary tract symptoms (principal); N13.8 Other obstructive and reflux uropathy; R97.20 Elevated prostate specific antigen [PSA]
CPT/HCPCS: 72197; A9579

== ENCOUNTER → 2023-09-12 09:01 | Outpatient (CLI) | payer OTHER, SELFPAY ==
[2023-09-13 12:09] LABS: PSA Free % 36.9 % (.); PSA, Total 8.3 ng/mL (0.0-4.0)
== END ==
PROVIDERS: PCP Family Medicine; Referring Provider Specialist; Visit Provider Specialist
DX: R97.20 Elevated prostate specific antigen [PSA] (principal)
CPT/HCPCS: 36415; 84153; 84154

== ENCOUNTER 2023-11-27 11:34 | Inpatient (IN) | payer OTHER, SELFPAY ==
[2023-11-27 11:46] VITALS: BP 130/76; PULSE 87; RESP 18; TEMP 36.7; O2SAT 96; BMI 25.1
--- NOTE | 2023-11-27 12:15 | DI.CT.S_ITS ---
PROCEDURE: CT LE LT W CON INDICATIONS: Assess for Periprothestic LEFT distal femur fx TECHNIQUE: Noncontrast 1-1.5 mm axial sections acquired from the mid-patella to the proximal tibia, with coronal and sagittal reformats. COMPARISON: [facility], CR, XR KNEE 3 VIEWS LEFT, 11/26/2023, 15:21. FINDINGS: Image quality: Excellent. Bones: Left knee arthroplasty with hardware components in expected position. Comminuted, mildly displaced distal right femur periprosthetic fracture. Soft tissues: Large left knee lipohemarthrosis. IMPRESSION: Left knee arthroplasty. Comminuted, mildly displaced distal right femur periprosthetic fracture. Large left knee joint lipohemarthrosis. Dictated by: Analisa Jose MD, PhD on 11/27/2023 at 12:50 Approved by: Analisa Jose MD, PhD on 11/27/2023 at 12:54
--- NOTE | 2023-11-27 12:40 | PC.NURSE ---
upon assessment at 1151 RN noticed left eye is drooping. Pt states that has been that way for years and that this is not a new thing. Monse MOURA aware.
[2023-11-27] MEDS: OXYCODONE/ACETAMINOPHEN 5/325 TABLET 1 TAB PO (12:47)
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
[2023-11-27 14:29] VITALS: BMI 25.1
[2023-11-27 14:45] VITALS: BP 121/58; PULSE 77; RESP 18; O2SAT 94
[2023-11-27 16:15] VITALS: BP 120/72; PULSE 76; RESP 16; TEMP 35.7; O2SAT 94
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
[2023-11-27 16:40] LABS: Hematocrit 40.6 % (41-53); Hemoglobin 13.9 g/dL (13.5-17.5); Mean Corpuscular HGB Conc 34.1 % (30-36); Mean Corpuscular Volume 93.7 fL (80-100); Platelet Count 93 X10^3/uL (150-400); Red Blood Cell Count 4.33 X10^6/uL (4.5-5.9)
[2023-11-27 17:01] LABS: Hemoglobin A1C% w Est Avg Glu 6.3 % (4.0-6.0)
[2023-11-27 17:44] LABS: Alanine Aminotransferase 19 IU/L (<50); Albumin Globulin Ratio 1.4 (1.0-2.8); Alkaline Phosphatase 85 U/L (38-126); Aspartate Aminotransferase 31 IU/L (17-59); Bilirubin Total 2.5 mg/dL (0.2-1.3); Blood Urea Nitrogen 18 mg/dL (9-20); Calcium 9.3 mg/dL (8.4-10.2); Carbon Dioxide 22 mmol/L (22-32); Chloride 103 mmol/L (98-107); Estimated Glomerular Filt Rate > 60 mL/min (>60); Globulin 2.9 g/dL (1.7-4.1); Glucose 111 mg/dL (80-110); HEMOLYSIS 18 (0-50); Potassium 4.5 mmol/L (3.4-5.1); Sodium 134 mmol/L (137-145); Total Protein 6.9 g/dL (6.3-8.2)
[2023-11-27 18:04] LABS: Neutrophils Absolute Manual 7020 /uL (3000-5900); Total Cells Counted 100
[2023-11-27 18:05] LABS: RBC Morphology Normal Morphology
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
[2023-11-27 20:00] VITALS: BP 115/66; PULSE 78; RESP 18; TEMP 36.3; O2SAT 92
[2023-11-27] MEDS: ATORVASTATIN 20 MG TABLET 10 MG PO (21:15)
[2023-11-27] MEDS: CYCLOBENZAPRINE 10 MG TABLET 5 MG PO (21:15)
[2023-11-27] MEDS: OXYCODONE IR 5 MG TABLET PO (21:15)
[2023-11-27] MEDS: TAMSULOSIN 0.4 MG CAPSULE PO (21:16)
[2023-11-28] VITALS (15 sets, daily range): BP systolic 96–138; BP diastolic 60–80; PULSE 81–89; RESP 12–20; TEMP 36.4–36.8; O2SAT 91–99; BMI 25.1
--- NOTE | 2023-11-28 | DI.RAD.S_ITS ---
PROCEDURE: XR KNEE LT 1TO2V INDICATIONS: POST OP LEFT KNEE REVISIONS TECHNIQUE: 5 view(s) of the knee acquired. COMPARISON: [facility], CR, XR KNEE 3 VIEWS LEFT, 11/26/2023, 15:21. FINDINGS: Bones: Patient is status post left total knee arthroplasty revision. Hardware components are in expected positions. Visualized bony structures are intact. Soft tissues: Overlying postoperative changes are noted. IMPRESSION: Expected postsurgical changes from left total knee arthroplasty revision with anatomic left knee alignment. Dictated by: Derian Valentine M.D. on 11/28/2023 at 17:11 Approved by: Derian Valentine M.D. on 11/28/2023 at 17:12
[2023-11-28] MEDS: LORazepam 1 MG TABLET PO (05:32)
--- NOTE | 2023-11-28 08:19 | PM.PREOP ---
Pre-operative Note Interval Note History & Physical reviewed/Exam performed by Physician: Yes Changes to H&P: No
[2023-11-28] MEDS: SPIRONOLACTONE 25 MG TABLET PO (08:21)
[2023-11-28] MEDS: atenoloL 25 MG TABLET PO (08:21)
[2023-11-28] MEDS: OXYCODONE IR 5 MG TABLET PO ×2 (08:26→19:41)
[2023-11-28 09:08] LABS: INR 1.4 (0.9-1.3); Prothrombin Time 15.6 SECONDS (9.4-12.5)
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
[2023-11-28] MEDS: ACETAMINOPHEN 325 MG TABLET 975 MG PO (11:52)
[2023-11-28] MEDS: CEFAZOLIN 2 GM/100 ML PREMIX 100 ML IV ×2 (12:10→19:40)
[2023-11-28] MEDS: TRANEXAMIC ACID 1,000 MG in SODIUM CHLORIDE 0.9% 100 ML 200 MG IV ×2 (12:12→14:41)
--- NOTE | 2023-11-28 12:40 | SUR.OPER ---
Supine on padded OR bed. Pillow under head, arms secured on padded armboards <90 degree abduction. Safety belt across torso. Non-operative leg secured with tape over blanket over lower leg. Operative leg secured in DeMayo/Josué/Nathe positioner. Foam padded brace at thigh of operative leg.
[2023-11-28] MEDS: ROPIVACAINE/EPI/CLONIDINE/KET 50 ML SYRINGE INJ (12:49)
[2023-11-28] MEDS: LACTATED RINGERS 1,000 ML 42 ML IV (13:41)
--- NOTE | 2023-11-28 14:43 | P.OP_ITS ---
Operative Date/Time/Diagnoses Date of procedure: 11/28/23 Pre-op diagnosis: Comminuted left periprosthetic distal femur fracture Procedure & Clinicians Procedure: Revision of left total knee arthroplasty to hinged distal femoral replacement using the [employer] OSS system Same procedure as scheduled: Yes Surgeon: Segun Redd Steam Powerplant Supervisor: Aida Nelson Anesthesia Type: General and Local Operative Notes Estimated Blood Loss (mL): 250 Procedure in detail: Revision of left total knee arthroplasty to hinged distal femoral replacement for comminuted periprosthetic distal femur fracture using [employer] OSS system Implants: * 8.5 cm segmental femoral component with 11 mm x 150 mm straight IM stem * 75 mm non modular long tibial base plate with 160 mm by 10 mm integrated stem * 22 mm tibial bearing with corresponding locking pin, axle, yoke, bushings * Retained patellar component from prior total knee arthroplasty Procedure Summary: This 73-year-old male patient sustained a distal femur fracture which was significantly comminuted and distal. I discussed fixation versus distal femoral replacement with him and recommended distal femoral fixation due to the anticipated high risk of nonunion given the minimal bone stock distally available for fixation. 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 He also reported past medical history significant for cirrhosis and diabetes. We checked liver function tests and a hemoglobin A1c for risk stratification purposes both of which were reassuring. We did note a low platelet count so platelets were ordered and are being shipped to the hospital for his postoperative recovery should they become necessary. Intraoperatively I removed the distal bone through the fracture site and found that, as shown in the photograph below, there was very little remaining cortical bone which would have allowed for fixation. I reconstructed the knee using the [employer] OSS system. There was some bone loss central and posteriorly behind the keel in the tibia which was bypassed with the long stem from the non modular tibial component. I initially cut the femur right at the 7 cm franklin based on the guide for the OSS system but found that this left some of the fracture so I brought it up higher and used an 8.5 cm distal segment. I cemented with an 18 mm insert but found that it had slight recurvatum so I upsized to a 22 mm insert which resolved the recurvatum. Patella tracking was appropriate with the amount of external rotation that was dialed in during insertion of the femoral component Procedure in Detail: This patient was seen preoperatively and evaluated for a distal femur fracture. I discussed the risks and benefits of him in detail. These risks included the need for further surgery, eventual possible amputation, damage to surrounding structures, patellar dislocation, infection, wound breakdown, medical complications, impaired mobility and additional unforeseen complications. With this understanding of the risks inherent to the procedure, the patient elected to move forward with operative management. Following preoperative optimization, the patient was scheduled for surgery. The patient was met in the preoperative holding area the day of the procedure and all questions were answered. The patient?s nares were swabbed with betadine in order to decolonize them from MRSA. Informed consent was signed and the left limb was marked with indelible ink.? The patient was brought back to the operating room where anesthesia was induced. The patient was transferred to the operating table and all bony prominences were padded. The operative site was prepped and draped in the usual sterile fashion. A second prep stick was utilized following drape placement. The incision was marked corresponding to the medial aspect of the tibial tubercle and the patella. Ioban was wrapped circumferentially around the knee. Prior to incision, tranexamic acid and cefazolin were administered. Templating images were displayed. A timeout procedure was performed verifying the patient?s identity, medical comorbidities, allergies, relevant medications, anesthesia type and the surgical plan. All present were in agreement. The assistance of a physician phys assistant was required for positioning, room setup, soft tissue retraction and wound closure. Without this assistance, the procedure would have been significantly more challenging and time consuming.?? I began the procedure by using an Esmarch and inflating the tourniquet. I excised the old scar. I identified the old medial parapatellar arthrotomy. I opened back up the arthrotomy and extended it proximally and distally. I removed permanent sutures which had been left in the arthrotomy. I performed a medial peel and dissected the synovium off the anterior femur. I excised scar from between the lateral tibia and the patellar tendon. I removed the polyethylene insert with an osteotome. It appeared to have been a cruciate retaining insert. The PCL did appear to be intact. I used the guide for the [facility] OSS system to make a cut corresponding to a left-sided 7 cm distal body. I noted that the fracture extended up past that area and wanted to have a smoother surface for interdigitation of the boss from the femoral component so I made an additional freshening cut slightly more proximally and plan to use an 8.5 cm distal body. I removed the resected bone and then dissected around the periphery of the distal femur, removing the LCL and MCL and PCL attachments to allow removal of the distal femoral component. I was careful to stay on bone during this entire process so as to avoid injury to the posterior neurovascular structures. I then moved onto the tibia. I used a micro sagittal saw to open up the bone cement interface around the tibial component and then passed a single sided reciprocating saw around the back of the knee to free up the posterior structures. I removed the tibial component. I did note that there was some bone loss centrally behind the keel in the area where I had been unable to access. I prepped the tibia for a 75 mm non modular base plate including using a large Reamer down the tibial canal. I then passed flexible reamers up the femur. I noted good chatter with a 12 mm Reamer and therefore continued up to a 12.5 mm and subsequently a 13 mm Reamer to allow for placement of a 11 mm stem. I then inserted the trial components. During the trialing process I found that smaller polyethylene inserts allowed the femur to pass into recurvatum and upsized to an 18 mm insert which resolve this recurvatum. I therefore plan to use this during the cement curing process. I manually externally rotated the femur and cycled it numerous times to evaluate patellar tracking and found appropriate patellar tracking. I therefore marked the femur in the position at which I intended to place external rotation to allow for appropriate patellar tracking during final component insertion. All trials were removed and the tibia and femur were both irrigated with canal brush irrigators. I placed dry laps down both canals to drop the bone. I did not use cement restrictor was on either side. Cement was mixed and added onto the tibial component. It was then placed down the tibial canal. I also placed it on the joint line of the tibia. The tibial component was placed and manually pressurized. Cement was allowed to dry before moving onto the femur. A separate batch was mixed for the femur and the femoral components were assembled. Cement was placed onto the stem portion of the femur and down the femoral canal. I manually pressurize this hoping to maximize the interdigitation of the cement down the femoral canal extending up towards the hip. The femoral component was placed with additional external rotation of approximately 5? beyond what I had marked with the trial. I did cycle the femur to ensure the patella tracked appropriately which it did. I then placed it into extension with an 18 mm [address] insert in place. I noted that it now went into recurvatum so I manually held it in neutral extension while the cement cured. Once the cement had cured upsized to a 22 mm polyethylene insert which resolved the recurvatum. I therefore plan to use this for final components. The wound was soaked for 3 minutes with a dilute mixture of Betadine and peroxide. I let down the tourniquet and inspected for bleeding throughout the knee. In particular I inspected the posterior structures for any evidence of popliteal artery injury. I did not detect any pulsatile bleeding in that area. I then inspected proximally and distally and coagulated wound bed. I placed the 22 mm insert along with the corresponding bushings, axle, and yolk to lock the hinge mechanism in place. I again trialed and found that the knee did not go into recurvatum and had appropriate patellar tracking. I inspected for excess cement and removed some as well as excess bleeding which was coagulated. I then injected a mixture of ropivacaine epinephrine clonidine and Toradol into the MCL, patellar tendon, quadriceps tendon, VMO, vastus lateralis. A 2nd dose of tranexamic acid was administered. The wound was closed using Ethibond, running Stratafix, barbed Stratafix, 2-0 Vicryl and 3-0 Monocryl. A harmeet incisional wound VAC was applied. A knee immobilizer Plan for aftercare: * Weightbearing as tolerated was applied * Knee immobilizer to remain in place until the postoperative wound check at which time it can be removed * Cefadroxil 500 mg twice per day for 7 days postoperatively for periprosthetic joint infection prophylaxis * Patient should mobilize with a walker while in the hospital. His knee immobilizer will make mobilization more challenging however he is fine to place full weight on his operative side * Aspirin 81 twice per day for DVT prophylaxis * Recommend a multimodal pain regimen minimizing IV opioids * The assistance of physical therapy and assessing the patient for appropriateness of discharge home versus a subacute rehabilitation facility will be appreciated. I am hopeful that the patient will eventually be able to discharge home although mobilization we will certainly be a challenge with the knee immobilizer in place which were using to provide some soft tissue rest to get the wound to heal * Follow up at [facility] in 2 weeks * Management of baseline medical issues during inpatient stay per the primary medical team
[2023-11-28] MEDS: LACTATED RINGERS 1,000 ML 100 ML IV (16:11)
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
[2023-11-28] MEDS: CYCLOBENZAPRINE 10 MG TABLET 5 MG PO (19:41)
[2023-11-28] MEDS: ACETAMINOPHEN 325 MG TABLET 650 MG PO (19:41)
[2023-11-28] MEDS: ATORVASTATIN 20 MG TABLET 10 MG PO (19:43)
[2023-11-28] MEDS: TAMSULOSIN 0.4 MG CAPSULE PO (19:43)
[2023-11-28] MEDS: ASPIRIN EC 81 MG TABLET PO (20:37)
[2023-11-28] MEDS: DOCUSATE 100 MG CAPSULE PO (20:37)
[2023-11-29] MEDS: LACTATED RINGERS 1,000 ML 100 ML IV (02:45)
[2023-11-29] MEDS: ACETAMINOPHEN 325 MG TABLET 650 MG PO (02:46)
[2023-11-29] MEDS: OXYCODONE IR 5 MG TABLET PO ×4 (02:46→20:02)
[2023-11-29] MEDS: CEFAZOLIN 2 GM/100 ML PREMIX 100 ML IV (03:31)
[2023-11-29 06:25] LABS: Hematocrit 31.5 % (41-53); Hemoglobin 10.8 g/dL (13.5-17.5)
[2023-11-29 07:46] VITALS: O2SAT 93
[2023-11-29 07:49] VITALS: BP 127/68; PULSE 92; RESP 17; TEMP 36.4; O2SAT 96
[2023-11-29] MEDS: ASPIRIN EC 81 MG TABLET PO ×2 (08:18→20:03)
[2023-11-29] MEDS: SPIRONOLACTONE 25 MG TABLET PO (08:18)
[2023-11-29] MEDS: DOCUSATE 100 MG CAPSULE PO ×2 (08:18→20:03)
[2023-11-29] MEDS: atenoloL 25 MG TABLET PO (08:18)
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
[2023-11-29] MEDS: OXYCODONE IR 10 MG TABLET PO (10:33)
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
--- NOTE | 2023-11-29 12:11 | CM.DPC ---
DCP SNF vs Home Per MD, pt making progress but needs to work with PT/OT and some pain management issues. Per PT/OT, recommending SNF before return home. SW met bedside with pt and explained role and pt confirms he lives in [place] alone but has local sister nearby who can assist daily and is currently taking care of pt's cat. Pt denies any hx of HH or SNF but has used [facility] outpt in the past after previous knee surgeries. SW discussed SNF recommendation and [employer] MCR coverage/auth process and pt currently quite adamant that his preference is home with his sister assist and outpt PT, maybe HH. SW attempted to encourage SNF referral for backup plan but pt currently not willing for SW to attempt SNF referral at this time. SW encouraged pt to invite his sister bedside to participate in CG training with PT/OT to confirm safe plan of home and that sister agreeable to assist. Plan: SW to follow closely for further PT/OT towards determining home with sister assist vs need for SNF referral. GURPREET Aceves
--- NOTE | 2023-11-29 16:52 | PT-IP ANOTE ---
PT read SW note encouraging pt to have sister come in for caregiver training. PT checks on pt for a second treatment this p.m. and he declines. PT re-ed pt to ask sister to come in by mid-morning tomorrow to try steps. Will decrease frequency to 1x/day. Pt has trouble finding phone on tray table and PT must get it for him. He is lying with his O2 doffed. Overall, feel pt is more appropriate for SNF. Can try family training and steps tomorrow IF he is appropriate. He may not be.
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
[2023-11-29 20:00] VITALS: BP 140/71; PULSE 100; RESP 17; O2SAT 99
[2023-11-29] MEDS: ATORVASTATIN 20 MG TABLET 10 MG PO (20:02)
[2023-11-29] MEDS: TAMSULOSIN 0.4 MG CAPSULE PO (20:02)
[2023-11-29] MEDS: LORazepam 1 MG TABLET PO (20:02)
[2023-11-29 20:25] VITALS: PULSE 98; O2SAT 97
[2023-11-30] MEDS: OXYCODONE IR 10 MG TABLET PO ×2 (03:43→09:19)
[2023-11-30 07:00] VITALS: BP 140/72; PULSE 94; RESP 16; TEMP 36.3; O2SAT 97
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
[2023-11-30] MEDS: ACETAMINOPHEN 325 MG TABLET 650 MG PO ×2 (09:19→17:24)
[2023-11-30] MEDS: ASPIRIN EC 81 MG TABLET PO ×2 (09:19→20:53)
[2023-11-30] MEDS: DOCUSATE 100 MG CAPSULE PO ×2 (09:20→20:53)
[2023-11-30] MEDS: atenoloL 25 MG TABLET PO (09:20)
[2023-11-30] MEDS: SPIRONOLACTONE 25 MG TABLET PO (09:20)
--- NOTE | 2023-11-30 10:15 | PT.IPTN ---
Current Diagnoses Unspecified fracture of lower end of left femur, initial encounter for closed fracture (11/27/23) Surgery Performed Operation Date: 11/28/23 12:45 Actual Procedures p Total Knee Arthroplasty Revision(Left) - Segun Redd MD Physical Therapy Treatment Note M2 PT-IP Current Condition Start: 11/29/23 08:57 Freq: Status: Active Protocol: Document 11/29/23 10:37 MB (Rec: 11/29/23 11:25 MB [id number]) Physical Therapy Current Condition Current Condition Evaluation Date 11/29/23 Treatment Diagnosis Injury to previous left TKA and revisioin 11/28/23 M3 PT-IP Subjective Start: 11/29/23 08:57 Freq: Status: Active Protocol: Document 11/30/23 10:15 AB (Rec: 11/30/23 11:27 AB [id number]) Subjective Physical Therapy Visit Type Type Treatment Note Visit Start Time 10:15 Visit Stop Time 10:45 Number of MDS NURSE Visits 0 Physical Therapy Visit Comments Patient Comments agreeable to do PT M4 PT-IP Mobility and Gait Start: 11/29/23 08:57 Freq: Status: Active Protocol: Document 11/30/23 10:15 AB (Rec: 11/30/23 11:27 AB [id number]) PT-Bed Mobility Assessment Supine to Sit Supine to Sit Maximum Assistance,1 Person Assistance,Head of Bed Elevated,Bedrails PT-Transfer Assessment Sit to and From Stand Sit to and from Stand Maximum Assistance,2 Person Assistance,Use of Upper Extremities Equipment Transfer Assistive Device Gait Belt,Front Wheeled Walker Orthotic/Prosthetic Devices or Brace: Yes Transfers Transfer Destination Chair Transfer Technique ambulated Transfer Ability Level of Assist Maximum Assistance,1 Person Assistance,Use of Upper Extremities Comments Mobility Comments pt supine in bed and agreed to do PT. pt with slight confusion needing cues with all tasks. pt with L knee immobilizer on. pt completed supine to sit max A and max cues with HOB elevated. NAC in room to assist. pt requiring mod to max A for sitting balance with increase lateral trunk leaning to the R . cued to correct but pt unable to follow instruction. pt completed sit to stand from EOB max A x 2 and max cues. max A for standing balance using FWW for support while NAC assisted pt with hygiene care and brief management. pt with tendency to pull on FWW during standing and cued to use for standing balance pushing down on FWW. pt ambulated ~ 7 ft using FWW max A and max cues and with chair follow. presents with decrease LE elevation and step length . pt requiring max A x 1-2 for controlled descent to chair. positioned pt on the chair. call light and table placed within reach. pt clarified that his sister can assist him but will not be able to stay with him to provide 09/10. Gait Assessment Gait Gait Assistance Required: Maximum Assistance,1 Person Assist Distance (Feet) 7 Able to Maintain Weight Bearing Status Yes During Gait Assistive Devices Assistive Device Front Wheeled Walker Orthotic/Prosthetic Devices or Brace: Yes Gait Deviations General Gait Pattern Decreased Stride Length, Decreased Feet Clearance,Step- to Gait Factors Limiting Gait Function Factors Limiting Gait Function Decreased Activity Tolerance, Decreased Strength,Difficulty Following Directions,Limited Range of Motion,Pain,Poor Balance,Poor Safety Awareness M5 PT-IP Objective Assessments Start: 11/29/23 08:57 Freq: Status: Active Protocol: Document 11/29/23 10:37 MB (Rec: 11/29/23 11:25 MB [id number]) Orientation Orientation/Cognition Level of Alertness Alert Orientation Name,Age,Birthday,Month,Date, Year,Day of Week,Place, Situation Language Function Ability No Deficits Noted Safety Awareness Decreased Safety Awareness Memory Description No Deficits Noted Gross Range of Motion Upper Extremity ROM Impairments Defer to OT Lower Extremity ROM Assessment Left Impaired Impairments Left knee in immobilizer and assume no AROM until cleared by surgeon, ankle and hip functional Strength Lower Extremity Strength Assessment Left Impaired Comments Strength Comments Pt with high pain and does not tolerate ankle MMT left ankle , right LE is WFLs with MMT ankle and knee Coordination Assessment Gross Coordination Gross Coordination Impaired Sensation Assessment Sensation Gross Sensation WNL Muscle Tone Muscle Tone WNL Yes M6 PT-IP Treatment Start: 11/29/23 08:57 Freq: Status: Active Protocol: Document 11/30/23 10:15 AB (Rec: 11/30/23 11:27 AB [id number]) Physical Therapy Treatment Education Education Provided Safety M7 PT-IP Assessment and Plan Start: 11/29/23 08:57 Freq: Status: Active Protocol: Document 11/30/23 10:15 AB (Rec: 11/30/23 11:27 AB [id number]) PT Summary Assessment and Plan Potential Rehabilitation Potential Fair Summary Impairments Pain,ROM,Strength,Balance, Coordination,Sensation,Tone, Cognition,Bed Mobility, Transfers,Gait,Activity Tolerance Progress Towards Goals Slow Progress - Other Assessment Summary pt requiring max A x 2 for sit to stand and was able to ambulate today ~ 7 ft using FWW max A and max cues. pt will require max A x 2 and 24/ 7 assist and will require SNF rehab to improve overall mobility independence. will continue to assess progress. Goals Bed Mobility Goal Independent Transfer Goal Independent,Front Wheeled Walker Gait Goal Independent,Front Wheel Walker Gait Distance 75 Other Goals Pt will ascend and descend 2 steps with both hands on left rail and no more than CgA to allow safe home entry. Days to Meet Goals 10 Frequency of Treatment Other frequency 1-2/day Treatment Plan Physical Therapy Treatment Plan Bed Mobility Training,Transfer Training,Gait Training, Therapeutic Exercise,Balance Retraining,Post Op Education, Discharge Planning,Hot or Cold Pack,Neuromuscular Re-ed, Coordination Retraining,Manual Therapy Precautions Brace L knee immobilizer Weight Bearing Status Weight Bearing Status Weight Bear as Tolerated Allowed Weight Bearing Amount (enter % LLE WBAT with knee immobilizer or #) (%) Recommendations To Nursing Amount of Assist Needed 2 Person Assist Discharge Recommendations PT Discharge Recommendations SNF Rehab Transportation Needs at Discharge Wheelchair/Cabulance
--- NOTE | 2023-11-30 11:51 | OT.IPNOTE ---
Attempted to see pt and would awaken briefly but keeps falling back asleep x3.
[2023-11-30 12:00] VITALS: BP 110/62; PULSE 85; RESP 11; TEMP 35.7; O2SAT 92
[2023-11-30] MEDS: INSULIN LISPRO 100 UNIT/ML 3ML VIAL SUBCUT ×2 (13:01→17:25)
--- NOTE | 2023-11-30 13:20 | OT.IP.TRT ---
Current Diagnoses Unspecified fracture of lower end of left femur, initial encounter for closed fracture (11/27/23) Surgery Performed Operation Date: 11/28/23 12:45 Actual Procedures p Total Knee Arthroplasty Revision(Left) - Segun Redd MD Occupational Therapy Treatment Note M2 OT-IP Current Condition Start: 11/29/23 11:17 Freq: Status: Active Protocol: Document 11/29/23 11:18 [facility] (Rec: 11/29/23 11:33 [facility] [id number]) Occupational Therapy Current Condition Current Condition Evaluation Date 11/29/23 Treatment Diagnosis Revision L TKA to hinged distal femoral replacement Diagnosis Onset Date 11/28/23 M3 OT- IP Subjective and Pain Start: 11/29/23 11:17 Freq: Status: Active Protocol: Document 11/30/23 13:22 [facility] (Rec: 11/30/23 13:27 [facility] [id number]) OT- Subjective Occupational Therapy Visit Type Type Treatment Note Visit Start Time 13:10 Visit Stop Time 13:20 Occupational Therapy Visit Comments Patient Comments Pt eating his lunch and agreed to do cognitive assessment. Patient/Caregiver Goals To go home. OT Pain Assessment Pain When Pain Assessed At Rest Pain Present Pain Present Denied Pain M4 OT- IP ADL's Start: 11/29/23 11:17 Freq: Status: Active Protocol: Document 11/30/23 13:22 [facility] (Rec: 11/30/23 13:27 [facility] [id number]) OT [id number] Comments OT Self-Feeding Comments Pt eating and falling asleep while eating and having to wake pt up to put his food down and not eat until he is fully awake. Notified nursing. Pt's nurse states also had ativan last night and pain medications today which may be why he is so sleepy as well. M6 OT- IP Functional Cognition Start: 11/29/23 11:17 Freq: Status: Active Protocol: Document 11/30/23 13:22 [facility] (Rec: 11/30/23 13:27 [facility] [id number]) Cognitive Factors Limiting Selfcare Function Cognitive Ability Level of Alertness Drowsy Cognitive Tests SLUMS Initiated the SLUMS however pt too drowsy and not able to stay awake. Pt not knowing what the day or year was and also falling asleep. to try again when pt is more alert. M8 OT- IP Objective Assessments Start: 11/29/23 11:17 Freq: Status: Active Protocol: Document 11/29/23 11:18 [facility] (Rec: 11/29/23 11:33 [facility] [id number]) OT Gross Range of Motion Upper Extremity Range of Motion Assessment Within Functional Limits OT Strength Upper Extremity Strength Assessment Within Functional Limits OT- Coordination Assessment Upper Extremity Finger to Nose Test Within Functional Limits M9 OT- IP Assessment and Plan Start: 11/29/23 11:17 Freq: Status: Active Protocol: Document 11/30/23 13:22 [facility] (Rec: 11/30/23 13:27 [facility] [id number]) OT Summary Assessment and Plan Summary Progress Towards Goals Slow Progress due to Medical Issues,Slow Progress due to Cognition Assessment Summary Pt on 2L of O2 andn at 98%. Pt is very drowsy and not able to stay awake to follow commands at this time. Still recommend skilled rehab. Goals Self-Feeding Goal Independent Grooming Goal Independent Dressing Goal Independent Toileting Goal Independent Bathing Goal Minimal Assistance Toilet Transfer Goal Independent Shower Transfer Goal Standby Assistance Days to Meet Goals 20 Frequency of Treatment Other frequency 5x/week Treatment Plan OT Treatment Plan ADL Training,Functional Mobility,Patient/Family Education,Discharge Planning Discharge Recommendations OT Discharge Recommendations SNF Rehab Home Equipment Needs BSC, WC Transportation Needs at Discharge Wheelchair/Cabulance
--- NOTE | 2023-11-30 14:10 | PT.IPTN ---
Current Diagnoses Unspecified fracture of lower end of left femur, initial encounter for closed fracture (11/27/23) Surgery Performed Operation Date: 11/28/23 12:45 Actual Procedures p Total Knee Arthroplasty Revision(Left) - Segun Redd MD Physical Therapy Treatment Note M2 PT-IP Current Condition Start: 11/29/23 08:57 Freq: Status: Active Protocol: Document 11/29/23 10:37 MB (Rec: 11/29/23 11:25 MB [id number]) Physical Therapy Current Condition Current Condition Evaluation Date 11/29/23 Treatment Diagnosis Injury to previous left TKA and revisioin 11/28/23 M3 PT-IP Subjective Start: 11/29/23 08:57 Freq: Status: Active Protocol: Document 11/30/23 14:10 AB (Rec: 11/30/23 17:03 AB [id number]) Subjective Physical Therapy Visit Type Type Treatment Note Visit Start Time 14:10 Visit Stop Time 14:35 Number of SPEECH WRITER Visits 0 Physical Therapy Visit Comments Patient Comments agreeable to do PT M4 PT-IP Mobility and Gait Start: 11/29/23 08:57 Freq: Status: Active Protocol: Document 11/30/23 14:10 AB (Rec: 11/30/23 17:03 AB [id number]) PT-Bed Mobility Assessment Sit to Supine Sit to Supine Maximum Assistance,2 Person Assistance,Bedrails PT-Transfer Assessment Sit to and From Stand Sit to and from Stand Maximum Assistance,2 Person Assistance,Use of Upper Extremities Equipment Transfer Assistive Device Gait Belt,Front Wheeled Walker Orthotic/Prosthetic Devices or Brace: Yes Transfers Transfer Destination Bed Transfer Technique ambulated Transfer Ability Level of Assist Maximum Assistance,1 Person Assistance,Use of Upper Extremities Comments Mobility Comments pt sitting on the chair. NAC stated that pt wants to go back to bed but needs brief change first. pt completed sit to stand from chair max A x 2 and max cues. max A for standing balance using FWW while NAC assisted pt with hygiene care and brief management. pt with stooped posture and cued to get to upright position. pt ambulated in room ~ 25 ft using FWW max a and max cues. pt sat on EOB. max A x 1-2 for controlled descent to EOB. pt required repeated cues and instructions. pt required max Ax 2 for sit to supine. positioned pt in bed. call light and table placed within reach. Gait Assessment Gait Gait Assistance Required: 1 Person Assist Distance (Feet) 25 Able to Maintain Weight Bearing Status Yes During Gait Assistive Devices Assistive Device Gait Belt,Front Wheeled Walker Orthotic/Prosthetic Devices or Brace: Yes Gait Deviations General Gait Pattern Antalgic,Decreased Stride Length,Decreased Feet Clearance Factors Limiting Gait Function Factors Limiting Gait Function Decreased Activity Tolerance, Decreased Strength,Difficulty Following Directions,Limited Range of Motion,Pain,Poor Balance,Poor Safety Awareness M5 PT-IP Objective Assessments Start: 11/29/23 08:57 Freq: Status: Active Protocol: Document 11/29/23 10:37 MB (Rec: 11/29/23 11:25 MB [id number]) Orientation Orientation/Cognition Level of Alertness Alert Orientation Name,Age,Birthday,Month,Date, Year,Day of Week,Place, Situation Language Function Ability No Deficits Noted Safety Awareness Decreased Safety Awareness Memory Description No Deficits Noted Gross Range of Motion Upper Extremity ROM Impairments Defer to OT Lower Extremity ROM Assessment Left Impaired Impairments Left knee in immobilizer and assume no AROM until cleared by surgeon, ankle and hip functional Strength Lower Extremity Strength Assessment Left Impaired Comments Strength Comments Pt with high pain and does not tolerate ankle MMT left ankle , right LE is WFLs with MMT ankle and knee Coordination Assessment Gross Coordination Gross Coordination Impaired Sensation Assessment Sensation Gross Sensation WNL Muscle Tone Muscle Tone WNL Yes M6 PT-IP Treatment Start: 11/29/23 08:57 Freq: Status: Active Protocol: Document 11/30/23 14:10 AB (Rec: 11/30/23 17:03 AB [id number]) Physical Therapy Treatment Education Education Provided Safety M7 PT-IP Assessment and Plan Start: 11/29/23 08:57 Freq: Status: Active Protocol: Document 11/30/23 14:10 AB (Rec: 11/30/23 17:03 AB [id number]) PT Summary Assessment and Plan Potential Rehabilitation Potential Good Summary Impairments Pain,ROM,Strength,Balance, Coordination,Sensation,Tone, Cognition,Bed Mobility, Transfers,Gait,Activity Tolerance Progress Towards Goals Slow Progress due to Activity Tolerance,Slow Progress - Other Assessment Summary pt slowly progressing with mobility and able to walk ~ 25 ft using FWW max A and max cues. pt will continue to require 24/7 assist and will benefit from SNF rehab. Goals Bed Mobility Goal Independent Transfer Goal Independent,Front Wheeled Walker Gait Goal Independent,Front Wheel Walker Gait Distance 75 Other Goals Pt will ascend and descend 2 steps with both hands on left rail and no more than CgA to allow safe home entry. Days to Meet Goals 10 Frequency of Treatment Other frequency 1-2/day Treatment Plan Physical Therapy Treatment Plan Bed Mobility Training,Transfer Training,Gait Training, Therapeutic Exercise,Balance Retraining,Post Op Education, Discharge Planning,Hot or Cold Pack,Neuromuscular Re-ed, Coordination Retraining,Manual Therapy Precautions Brace L knee immobilizer Weight Bearing Status Weight Bearing Status Weight Bear as Tolerated Allowed Weight Bearing Amount (enter % LLE WBAT with knee immobilizer or #) (%) Recommendations To Nursing Amount of Assist Needed 2 Person Assist Discharge Recommendations PT Discharge Recommendations SNF Rehab Transportation Needs at Discharge Wheelchair/Cabulance
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
[2023-11-30] MEDS: CEFAZOLIN 2 GM/100 ML PREMIX 100 ML IV ×2 (15:13→22:07)
[2023-11-30 16:00] VITALS: BP 128/72; PULSE 86; RESP 15; TEMP 36.1; O2SAT 100
[2023-11-30] MEDS: CYCLOBENZAPRINE 10 MG TABLET 5 MG PO (17:25)
[2023-11-30 19:56] VITALS: BP 119/72; PULSE 91; RESP 19; O2SAT 97
[2023-11-30] MEDS: TAMSULOSIN 0.4 MG CAPSULE PO (20:53)
[2023-11-30] MEDS: ATORVASTATIN 20 MG TABLET 10 MG PO (20:54)
[2023-11-30] MEDS: OXYCODONE IR 5 MG TABLET PO (20:56)
[2023-12-01] VITALS (7 sets, daily range): BP systolic 109–128; BP diastolic 64–72; PULSE 82–88; RESP 14–18; TEMP 36–36.6; O2SAT 94–99
[2023-12-01] MEDS: OXYCODONE IR 5 MG TABLET PO ×3 (03:38→20:21)
[2023-12-01] MEDS: CEFAZOLIN 2 GM/100 ML PREMIX 100 ML IV ×3 (05:30→22:21)
[2023-12-01] MEDS: LORazepam 1 MG TABLET PO (06:45)
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
[2023-12-01] MEDS: INSULIN LISPRO 100 UNIT/ML 3ML VIAL SUBCUT ×3 (08:06→17:15)
[2023-12-01] MEDS: DOCUSATE 100 MG CAPSULE PO ×2 (08:06→20:24)
[2023-12-01] MEDS: SPIRONOLACTONE 25 MG TABLET PO (08:06)
[2023-12-01] MEDS: atenoloL 25 MG TABLET PO (08:06)
[2023-12-01] MEDS: ASPIRIN EC 81 MG TABLET PO ×2 (08:06→20:22)
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
--- NOTE | 2023-12-01 11:15 | PT.IPTN ---
Current Diagnoses Unspecified fracture of lower end of left femur, initial encounter for closed fracture (11/27/23) Surgery Performed Operation Date: 11/28/23 12:45 Actual Procedures p Total Knee Arthroplasty Revision(Left) - Segun Redd MD Physical Therapy Treatment Note M2 PT-IP Current Condition Start: 11/29/23 08:57 Freq: Status: Active Protocol: Document 11/29/23 10:37 MB (Rec: 11/29/23 11:25 MB [id number]) Physical Therapy Current Condition Current Condition Evaluation Date 11/29/23 Treatment Diagnosis Injury to previous left TKA and revisioin 11/28/23 M3 PT-IP Subjective Start: 11/29/23 08:57 Freq: Status: Active Protocol: Document 12/01/23 12:33 TS (Rec: 12/01/23 12:45 TS [id number]) Subjective Physical Therapy Visit Type Type Treatment Note Visit Start Time 11:15 Visit Stop Time 11:45 Number of CHIEF LEARNING OFFICER Visits 1 Physical Therapy Visit Comments Patient Comments Pt found resting in bed, he is agreeable to PT. Therapy Pain Assessment Pain When Pain Assessed At Rest Pain Present Pain Present Pain Reported M4 PT-IP Mobility and Gait Start: 11/29/23 08:57 Freq: Status: Active Protocol: Document 12/01/23 12:33 TS (Rec: 12/01/23 12:45 TS [id number]) PT-Bed Mobility Assessment Supine to Sit Supine to Sit Maximum Assistance,1 Person Assistance,Head of Bed Elevated,Bedrails Scooting Scooting to Edge of Bed Moderate Assistance PT-Transfer Assessment Sit to and From Stand Sit to and from Stand Maximum Assistance,1 Person Assistance,Use of Upper Extremities Equipment Transfer Assistive Device Gait Belt,Front Wheeled Walker Orthotic/Prosthetic Devices or Brace: Yes Comments Mobility Comments Knee immobilizer on for LLE. Supine to sit MaxA x1 for LLE to EOB and uprighting trunk. He performs STS with FWW MaxA with cues for pushign from bed . He ambulates a short distance in the room ~15' ModA with cues for step sequencing . Pt requested to sit in chair . Pt was left in chair, all needs met. Gait Assessment Gait Gait Assistance Required: Moderate Assistance,1 Person Assist Distance (Feet) 15 Able to Maintain Weight Bearing Status Yes During Gait Assistive Devices Assistive Device Gait Belt,Front Wheeled Walker Orthotic/Prosthetic Devices or Brace: Yes Gait Deviations General Gait Pattern Antalgic,Decreased Stride Length,Decreased Feet Clearance Factors Limiting Gait Function Factors Limiting Gait Function Decreased Activity Tolerance, Decreased Strength,Difficulty Following Directions,Limited Range of Motion,Pain,Poor Balance,Poor Safety Awareness PT-Balance Assessment Sitting Balance and Reactions Static Sitting Balance Ability Good Dynamic Sitting Balance Ability Fair Standing Balance and Reactions Static Standing Balance Ability Fair Dynamic Standing Balance Ability Fair Device Used FWW M5 PT-IP Objective Assessments Start: 11/29/23 08:57 Freq: Status: Active Protocol: Document 11/29/23 10:37 MB (Rec: 11/29/23 11:25 MB [id number]) Orientation Orientation/Cognition Level of Alertness Alert Orientation Name,Age,Birthday,Month,Date, Year,Day of Week,Place, Situation Language Function Ability No Deficits Noted Safety Awareness Decreased Safety Awareness Memory Description No Deficits Noted Gross Range of Motion Upper Extremity ROM Impairments Defer to OT Lower Extremity ROM Assessment Left Impaired Impairments Left knee in immobilizer and assume no AROM until cleared by surgeon, ankle and hip functional Strength Lower Extremity Strength Assessment Left Impaired Comments Strength Comments Pt with high pain and does not tolerate ankle MMT left ankle , right LE is WFLs with MMT ankle and knee Coordination Assessment Gross Coordination Gross Coordination Impaired Sensation Assessment Sensation Gross Sensation WNL Muscle Tone Muscle Tone WNL Yes M6 PT-IP Treatment Start: 11/29/23 08:57 Freq: Status: Active Protocol: Document 12/01/23 12:33 TS (Rec: 12/01/23 12:45 [id number]) Physical Therapy Treatment Education Education Provided Safety M7 PT-IP Assessment and Plan Start: 11/29/23 08:57 Freq: Status: Active Protocol: Document 12/01/23 12:33 TS (Rec: 12/01/23 12:45 [id number]) PT Summary Assessment and Plan Potential Rehabilitation Potential Good Summary Impairments Pain,ROM,Strength,Balance, Coordination,Sensation,Tone, Cognition,Bed Mobility, Transfers,Gait,Activity Tolerance Progress Towards Goals Slow Progress due to Activity Tolerance,Slow Progress - Other Assessment Summary Adarsh continues to make slow progress with his mobility. He requires MaxA for bed mobility and ModA for ambualtion. He continues to ambulate short distances in the room. PT continues to recommend SNF. Goals Bed Mobility Goal Independent Transfer Goal Independent,Front Wheeled Walker Gait Goal Independent,Front Wheel Walker Gait Distance 75 Other Goals Pt will ascend and descend 2 steps with both hands on left rail and no more than CgA to allow safe home entry. Days to Meet Goals 10 Frequency of Treatment Other frequency 1-2/day Treatment Plan Physical Therapy Treatment Plan Bed Mobility Training,Transfer Training,Gait Training, Therapeutic Exercise,Balance Retraining,Post Op Education, Discharge Planning,Hot or Cold Pack,Neuromuscular Re-ed, Coordination Retraining,Manual Therapy Precautions Brace L knee immobilizer Weight Bearing Status Weight Bearing Status Weight Bear as Tolerated Allowed Weight Bearing Amount (enter % LLE WBAT with knee immobilizer or #) (%) Recommendations To Nursing Amount of Assist Needed 2 Person Assist Discharge Recommendations PT Discharge Recommendations SNF Rehab Transportation Needs at Discharge Wheelchair/Cabulance
[2023-12-01] MEDS: ACETAMINOPHEN 325 MG TABLET 650 MG PO (12:27)
[2023-12-01] MEDS: OXYCODONE IR 10 MG TABLET PO (12:27)
--- NOTE | 2023-12-01 15:57 | CM.DPC ---
DCP Continued: Reviewed EMR and team rounds for pt?s medical status. Per team rounds, pt appropriate for SNF Rehab. DCP entered room and attempted to discuss SNF Rehab or home health with patient. Confirmed twice, pt still declining any referral to the prior. Pt explained that he can get up and my sister is nearby so I don't need that. Pt consented to this DCP leaving Medicare Choice list at bedside to review. Plan: Anticipating pt to discharge home with family assist when medically stable. CM Team will continue to follow for coordination of discharge plans. MANNY Smith
[2023-12-01] MEDS: polyethylene glycoL 3350 17 GM POWD.PACK PO (16:13)
--- NOTE | 2023-12-01 18:55 | PC.NURSE ---
Called into room by DEAD MAIL CHECKER. Patient urinated in urinal and was found to have 150mL of carol ann red hematuria. Upon examination of paitnet by this nurse. Patient was found to have trickeling of blood coming from his urethra. Provider was notified of this new change in situation. Provider suggests to do bladder scans for PRV amount, and cont. to monitor. PRV amount on scan was noted to be 46mL, provider aware, no further action to be had at this time.
[2023-12-01] MEDS: TAMSULOSIN 0.4 MG CAPSULE PO (20:21)
[2023-12-01] MEDS: ATORVASTATIN 20 MG TABLET 10 MG PO (20:22)
[2023-12-01] MEDS: CYCLOBENZAPRINE 10 MG TABLET 5 MG PO (20:23)
[2023-12-02] MEDS: OXYCODONE IR 5 MG TABLET PO ×2 (04:00→08:30)
[2023-12-02] MEDS: CEFAZOLIN 2 GM/100 ML PREMIX 100 ML IV ×3 (05:48→21:09)
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
[2023-12-02 08:00] VITALS: BP 130/73; PULSE 83; RESP 18; TEMP 36.1; O2SAT 94
[2023-12-02] MEDS: INSULIN LISPRO 100 UNIT/ML 3ML VIAL SUBCUT ×3 (08:28→16:55)
[2023-12-02] MEDS: ASPIRIN EC 81 MG TABLET PO ×2 (08:30→20:40)
[2023-12-02] MEDS: SPIRONOLACTONE 25 MG TABLET PO (08:30)
[2023-12-02] MEDS: DOCUSATE 100 MG CAPSULE PO ×2 (08:30→20:40)
[2023-12-02] MEDS: atenoloL 25 MG TABLET PO (08:33)
--- NOTE | 2023-12-02 10:29 | PT.IPTN ---
Current Diagnoses Unspecified fracture of lower end of left femur, initial encounter for closed fracture (11/27/23) Surgery Performed Operation Date: 11/28/23 12:45 Actual Procedures p Total Knee Arthroplasty Revision(Left) - Segun Redd MD Physical Therapy Treatment Note M2 PT-IP Current Condition Start: 11/29/23 08:57 Freq: Status: Active Protocol: Document 11/29/23 10:37 MB (Rec: 11/29/23 11:25 MB [id number]) Physical Therapy Current Condition Current Condition Evaluation Date 11/29/23 Treatment Diagnosis Injury to previous left TKA and revisioin 11/28/23 M3 PT-IP Subjective Start: 11/29/23 08:57 Freq: Status: Active Protocol: Document 12/02/23 09:51 KS (Rec: 12/02/23 10:54 KS [id number]) Subjective Physical Therapy Visit Type Type Treatment Note Visit Start Time 09:51 Visit Stop Time 10:29 Number of HORTICULTURE PROFESSOR Visits 2 Physical Therapy Visit Comments Patient Comments Pt in chair, agreeable to PT M4 PT-IP Mobility and Gait Start: 11/29/23 08:57 Freq: Status: Active Protocol: Document 12/02/23 09:51 KS (Rec: 12/02/23 10:54 KS [id number]) PT-Transfer Assessment Sit to and From Stand Sit to and from Stand Moderate Assistance,1 Person Assistance,Use of Upper Extremities Equipment Transfer Assistive Device Gait Belt,Front Wheeled Walker Orthotic/Prosthetic Devices or Brace: Yes Transfers Transfer Destination Bed Transfer Technique ambulated Transfer Ability Level of Assist Minimal Assistance,1 Person Assistance,Use of Upper Extremities Comments Mobility Comments Pt in chair upon arrival, reporting fatigue but agreeable to ambulate and transfer to bed. Mod A for sit <>Stand from chair, with cues to push up from arm rests. Pt ambulated ~25 ft w/ FWW and Min A, he ambulates very slowly but no LOB. Min A for slow descent onto bed. Mod A for sit<>Sup for CLAIRE elevation and repositioning. Pt left in bed w/ all needs in reach. Gait Assessment Gait Gait Assistance Required: Minimum Assistance Distance (Feet) 25 Able to Maintain Weight Bearing Status Yes During Gait Assistive Devices Assistive Device Gait Belt,Front Wheeled Walker Orthotic/Prosthetic Devices or Brace: Yes Gait Deviations General Gait Pattern Antalgic,Decreased Stride Length,Decreased Feet Clearance Factors Limiting Gait Function Factors Limiting Gait Function Decreased Activity Tolerance, Decreased Strength,Difficulty Following Directions,Limited Range of Motion,Pain,Poor Balance,Poor Safety Awareness Stair Climbing Assessment Comments Stair Climbing Comments not assessed, pt has 1 stair to enter home. PT-Balance Assessment Sitting Balance and Reactions Static Sitting Balance Ability Good Dynamic Sitting Balance Ability Fair Standing Balance and Reactions Static Standing Balance Ability Fair Dynamic Standing Balance Ability Fair Device Used FWW M5 PT-IP Objective Assessments Start: 11/29/23 08:57 Freq: Status: Active Protocol: Document 11/29/23 10:37 MB (Rec: 11/29/23 11:25 MB [id number]) Orientation Orientation/Cognition Level of Alertness Alert Orientation Name,Age,Birthday,Month,Date, Year,Day of Week,Place, Situation Language Function Ability No Deficits Noted Safety Awareness Decreased Safety Awareness Memory Description No Deficits Noted Gross Range of Motion Upper Extremity ROM Impairments Defer to OT Lower Extremity ROM Assessment Left Impaired Impairments Left knee in immobilizer and assume no AROM until cleared by surgeon, ankle and hip functional Strength Lower Extremity Strength Assessment Left Impaired Comments Strength Comments Pt with high pain and does not tolerate ankle MMT left ankle , right LE is WFLs with MMT ankle and knee Coordination Assessment Gross Coordination Gross Coordination Impaired Sensation Assessment Sensation Gross Sensation WNL Muscle Tone Muscle Tone WNL Yes M6 PT-IP Treatment Start: 11/29/23 08:57 Freq: Status: Active Protocol: Document 12/02/23 09:51 KS (Rec: 12/02/23 10:54 MD [id number]) Physical Therapy Treatment Education Education Provided Safety M7 PT-IP Assessment and Plan Start: 11/29/23 08:57 Freq: Status: Active Protocol: Document 12/02/23 09:51 KS (Rec: 12/02/23 10:54 KS [id number]) PT Summary Assessment and Plan Potential Rehabilitation Potential Good Summary Impairments Pain,ROM,Strength,Balance, Coordination,Sensation,Tone, Cognition,Bed Mobility, Transfers,Gait,Activity Tolerance Progress Towards Goals Slow Progress due to Activity Tolerance,Slow Progress - Other Assessment Summary Adarsh continues to progress w . mobility, but is limited by weakness, pain, and low tolerance for activity. PT recommends SNF, but pt unsure what he wants at d/c. He lives alone and is limited to short distances and needs assistance with bed mobility and transfers which he does not have at home. Will continue to assess progress. Goals Bed Mobility Goal Independent Transfer Goal Independent,Front Wheeled Walker Gait Goal Independent,Front Wheel Walker Gait Distance 75 Other Goals Pt will ascend and descend 2 steps with both hands on left rail and no more than CgA to allow safe home entry. Days to Meet Goals 10 Frequency of Treatment Other frequency 1-2/day Treatment Plan Physical Therapy Treatment Plan Bed Mobility Training,Transfer Training,Gait Training, Therapeutic Exercise,Balance Retraining,Post Op Education, Discharge Planning,Hot or Cold Pack,Neuromuscular Re-ed, Coordination Retraining,Manual Therapy Precautions Brace L knee immobilizer Weight Bearing Status Weight Bearing Status Weight Bear as Tolerated Allowed Weight Bearing Amount (enter % LLE WBAT with knee immobilizer or #) (%) Recommendations To Nursing Amount of Assist Needed 1 Person Assist Discharge Recommendations PT Discharge Recommendations SNF Rehab Transportation Needs at Discharge Wheelchair/Cabulance
[2023-12-02] MEDS: polyethylene glycoL 3350 17 GM POWD.PACK PO (10:42)
--- NOTE | 2023-12-02 15:10 | CM.DPNOTE ---
DCP Note MARBLE MACHINE OPERATOR reviewed EMR. Per MOLD CARPENTER, continue to rec SNF but pt is refusing. MARBLE MACHINE OPERATOR met with pt and sister in room. Pt continues to refuse SNF. After lengthy chat with pt and sister, pt agreeable to HH. Sister/pt preference for [facility]. MARBLE MACHINE OPERATOR emailed Jadyn asking to review referral. P: anticipate dc home with sister support and [facility] pending acceptance. F2f and order needed. CM team will continue to follow closely GURPREET Barrett
[2023-12-02] MEDS: LORazepam 1 MG TABLET PO (17:37)
[2023-12-02 18:53] VITALS: BP 127/75; PULSE 87; RESP 22; TEMP 36.3; O2SAT 97
[2023-12-02 20:17] VITALS: BP 135/68; PULSE 85; RESP 18; TEMP 36.4; O2SAT 95
--- NOTE | 2023-12-02 20:22 | PC.NURSE ---
Addendum entered by Alexandra Parr R.N. 12/02/23 22:42: NOC: Bed alarm went off, pt sitting at edge of bed attempting to get out, saying I have to leave, I have to go home, [place] to get [place] the [place], I can walk, let me out! Pt assisted back to bed. Pt resting comfortably for the last hour. Care continues. Original Note: NOC: During handoff, this RN and RN Damian Valverde noted small amount of carol ann red blood in urine/on brief coming from urethral opening. Pt stated no pain or discomfort. Notified MD Means. Care continues.
[2023-12-02] MEDS: ATORVASTATIN 20 MG TABLET 10 MG PO (20:39)
[2023-12-02] MEDS: TAMSULOSIN 0.4 MG CAPSULE PO (20:40)
[2023-12-02] MEDS: ACETAMINOPHEN 325 MG TABLET 650 MG PO (21:04)
[2023-12-02] MEDS: CYCLOBENZAPRINE 10 MG TABLET 5 MG PO (21:05)
[2023-12-03] MEDS: OXYCODONE IR 5 MG TABLET PO (03:55)
[2023-12-03] MEDS: CEFAZOLIN 2 GM/100 ML PREMIX 100 ML IV (06:10)
[2023-12-03 06:15] LABS: Hematocrit 30.9 % (41-53); Mean Corpuscular HGB Conc 35.5 % (30-36); Mean Corpuscular Hemoglobin 32.6 PG (26-34); Mean Corpuscular Volume 91.9 fL (80-100); Platelet Count 129 X10^3/uL (150-400); Red Blood Cell Count 3.36 X10^6/uL (4.5-5.9); Red Cell Distribution Width 13.8 % (11.6-14.8); White Blood Cell Count 6.3 X10^3/uL (4.5-11.0)
[2023-12-03 06:30] LABS: BUN Creatinine Ratio 31.3 (6-22); Blood Urea Nitrogen 21 mg/dL (9-20); Calcium 8.9 mg/dL (8.4-10.2); Carbon Dioxide 28 mmol/L (22-32); Chloride 96 mmol/L (98-107); Estimated Glomerular Filt Rate > 60 mL/min (>60); Glucose 169 mg/dL (80-110); HEMOLYSIS < 15 (0-50); Potassium 4.8 mmol/L (3.4-5.1); Sodium 128 mmol/L (137-145)
[2023-12-03 08:00] VITALS: BP 136/76; PULSE 83; RESP 16; TEMP 36.2; O2SAT 95
[2023-12-03] MEDS: INSULIN LISPRO 100 UNIT/ML 3ML VIAL SUBCUT ×2 (08:32→12:45)
[2023-12-03] MEDS: DOCUSATE 100 MG CAPSULE PO (08:34)
[2023-12-03] MEDS: polyethylene glycoL 3350 17 GM POWD.PACK PO (08:35)
[2023-12-03] MEDS: ACETAMINOPHEN 325 MG TABLET 650 MG PO ×2 (08:35→14:20)
[2023-12-03] MEDS: ASPIRIN EC 81 MG TABLET PO (08:35)
[2023-12-03] MEDS: atenoloL 25 MG TABLET PO (08:40)
[2023-12-03] MEDS: SPIRONOLACTONE 25 MG TABLET PO (08:41)
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
--- NOTE | 2023-12-03 11:19 | CM.DPNOTE ---
DCP Note TAR BOILER reviewed EMR. Per hospitalist, since pt is refusing SNF cleared to dc home with sister and HH. Per Jadyn at [facility], able to accept for PT/OT. TAR BOILER met with pt in room. Continues to refuse SNF, agreeable to HH. Updated on [facility] acceptance. Report [facility] can call sister to schedule if he does not answer. RN plans to call sister to update her. TAR BOILER completed f2f and order. TAR BOILER updated Jadyn at [facility] of dc today, report earliest SOC would be 12/03 (tomorrow). P: dc today with sister support and [facility] to follow for PT/OT. sister to transport home. CM team will continue to follow as needed GURPREET Berry
--- NOTE | 2023-12-03 15:13 | PC.NURSE ---
Patient is A&Ox3 slightly forgetful. VSS, afebrile on RA. He is able to stand with assist to sit in chair this a.m. He reports pain today is well controlled with tylenol PRN. He is cleared for discharge today from ortho PA and hospitalist. He declines SNF and patient's sister is aggreeable to coming to pick him up today after lunch. She stopped in [place] to strip picker his medications on the way. He tolerates lunch well. He and sister verbalize understanding of meds, site care, PHANI care, activity limitations, s/sx of infection, [facility] care and follow up in 7-10 day with MD Redd office. Patient is assisted to w/ and to private vehicle with sister for discharge home today at approximately 1430. Patient retrieves wallet and watch from his safe as well.
== END 2023-12-03 14:30 | disposition home health service (06) | DRG 467 ==
LOC: ED 14:21 → AC 14:22
PROVIDERS: Hospitalist; Orthopaedic Surgery Adult Reconstructive Orthopaedic Surgery; Admitting Provider Student in an Organized Health Care Education/Training Program; Emergency Provider Student in an Organized Health Care Education/Training Program; PCP Family Medicine; Referring Provider Student in an Organized Health Care Education/Training Program; Visit Provider Student in an Organized Health Care Education/Training Program
PROC: 0SPU0JZ Removal of Synthetic Substitute from Left Knee Joint, Femoral Surface, Open Approach (ICD-10-PCS; principal; 2023-11-28 12:45)
DX: S72.402A Unspecified fracture of lower end of left femur, initial encounter for closed fracture (principal); M97.12XA Periprosthetic fracture around internal prosthetic left knee joint, initial encounter; K70.30 Alcoholic cirrhosis of liver without ascites; E11.9 Type 2 diabetes mellitus without complications; N40.0 Benign prostatic hyperplasia without lower urinary tract symptoms; K59.00 Constipation, unspecified; F41.9 Anxiety disorder, unspecified; I10 Essential (primary) hypertension; W18.30XA Fall on same level, unspecified, initial encounter; Z87.891 Personal history of nicotine dependence; Z79.84 Long term (current) use of oral hypoglycemic drugs
CPT/HCPCS: 36415; 73560; 73700; 80048; 80053; 82962; 83036; 85007; 85014; 85018; 85027; 85610; 86850; 86900; 86901; 94762; 97116; 97161; 97166; 97530; 97535; 99284; C1776; J0690; J1170; J1815; J2704; J3010

== ENCOUNTER → 2024-04-02 13:18 | Outpatient (CLI) | payer OTHER, SELFPAY ==
[2024-04-02 14:29] LABS: Prostate Specific Antigen 4.33 ng/mL (0.10-4.00)
== END ==
PROVIDERS: PCP Family Medicine; Referring Provider Urology; Visit Provider Urology
DX: N40.1 Benign prostatic hyperplasia with lower urinary tract symptoms (principal); N13.8 Other obstructive and reflux uropathy; R97.20 Elevated prostate specific antigen [PSA]
CPT/HCPCS: 36415; 84153

== ENCOUNTER → 2024-09-18 07:31 | Outpatient (CLI) | payer OTHER, SELFPAY ==
[2024-09-18 09:03] LABS: Prostate Specific Antigen 3.77 ng/mL (0.10-4.00)
== END ==
PROVIDERS: PCP Family Medicine; Referring Provider Family Medicine; Visit Provider Urology
DX: N40.1 Benign prostatic hyperplasia with lower urinary tract symptoms (principal); N13.8 Other obstructive and reflux uropathy; R97.20 Elevated prostate specific antigen [PSA]
CPT/HCPCS: 36415; 84153

== ENCOUNTER → 2025-03-18 11:51 | Outpatient (CLI) | payer OTHER, SELFPAY ==
[2025-03-18 14:10] LABS: Prostate Specific Antigen 7.29 ng/mL (0.10-4.00)
== END ==
PROVIDERS: PCP Family Medicine; Referring Provider Urology; Visit Provider Urology
DX: R97.20 Elevated prostate specific antigen [PSA] (principal)
CPT/HCPCS: 84153